=== PATIENT | male | born 1955 | race Caucasian/White ===

== ENCOUNTER 2023-08-20 08:24 | Outpatient (AMB) | payer MEDICARE, OTHER, SELFPAY ==
[2023-08-20 08:37] VITALS: BP 124/72; PULSE 84; RESP 16; O2SAT 96; BMI 34.9
--- NOTE | 2023-08-20 08:37 | A.OFFVIS_ITS ---
Intake Vital Signs 08/20/23 08:37 Height 5 ft 10 in Weight 243 lb 8 oz BMI 34.9 BP 124/72 Blood Pressure Location Rt brachial Position Sitting Respiration 16 Pulse 84 Pulse Source Pulse Oximeter Pulse Oximetry (%) 96 Oxygen Delivery Method Room Air Intake Visit Reasons: NPV-Cluster Headaches-LVM Intake Note: Pt presents to office for new pt evaluation for cluster headaches. He reports they start in the posterior head, throbbing, radiates to left frontal region. These occur daily. He states they are a 9/10 on pain scale. They range from 4 hour to 24 hours. He denies nausea or vomiting. He states he treats at [facility] with Acetominophen which only works depending on how much he takes and the severity of the headache. He has been gettin these headaches for about 2 years. Allergies Penicillins Allergy (Unknown, Verified 08/20/23 08:43) Unknown Medication List - Last Reconciled 08/20/23 by Mary Mendez, MILLY calcium acetate 667 mg PO TID carvedilol 3.125 mg PO BID cholecalciferol (vitamin D3) 25 mcg PO DAILY ibuprofen 200 mg PO Q6H PRN levothyroxine 200 mcg PO DAILY lorazepam 2 mg PO 3XW omeprazole 20 mg PO sertraline 50 mg PO DAILY ubrogepant (Ubrelvy) 50 - 100 mg (0.5 - 1 x 100 mg) PO ONCE PRN 30 days HPI HPI Comments History of Present Illness Details 67-yr-old male presents for new pt evalu ation of headache disorder. Pt reports that he started having headaches approx 2 yrs ago, without preceding infection, injury, travel. He does feel like he is being pulled in multiple directions. He states he has multiple health issues of his own and his has young onset Alzheimer's and his dtr has bipolar. Headache questionnaire: Previous work-up? None Typical headache characteristics: Prodrome symptoms? Unsure Aura? None Location, quality, characteristics? Always on the left side of the back of the head into the back of the neck- usually aching but sometimes throbbing. It feels like someone with a very large hand is pressing against his left face/eye. Pain intensity? Starts at a 1/10 and climbs up to 9/10 Associated symptoms? Photophobia, activity intolerance- wants to lay down in his recliner. Denies phonophobia, dizziness, allodynia. Focal weakness, Parethesias, Autonomic s/s? Usually but can be both eyes- watery eyes, runny nose. Denies facial droop, paresthesias. Postdrome? Unsure Triggers? Sleep affects headcahes- but he does not know clear relationship. Any positional, valsalva, exertional, sexual activity triggers? None Time of day? []No specific time- comes on anytime. Duration? From 4-24 hrs Frequency? In the last 2 weeks, 14 headaches. How does headache impact your life? Would like to lay down, but cannot always. Current acute medication use/interventions: Tylenol, Ibuprofen- not always effective. Previous acute medication use: None Current preventative medication use: None Previous preventative medication use: None Non-pharmacological interventions: Rest as able Other history of headache disorder? None History of musculoskeletal disorders or injury? No usual neck issues History of concussion/head injury? None History of mood disorder? Anxiety, depression. He has had anxiety when he started dialysis- would become restless after being in the chair for 3 hrs. History of sleep disorder? Has a CPAP for sleep apnea- has [facility]. Has difficulty sleeping w/ his machine so does not use often. He is scheduled for a f/u sleep study. History of respiratory disease? None History of CV disease? HTN and HLD- well-controlled on HD. On kidney transplant list History of coagulopathy? None History of endocrine or metabolic disease? Hypothyroidism and type I diabetes- since age 17. History of seizure? None History of GI disorder? Constiptaion, GERD. Family history of migraine or other headache disorder? None [facility] Medical History (Updated 08/20/23 @ 13:02 by MILLY Saba) Alcoholism in remission Hemodialysis status GERD (gastroesophageal reflux disease) Erectile dysfunction Atherosclerosis Hypothyroidism Depression Bilateral hip pain HLD (hyperlipidemia) HTN (hypertension) CTS (carpal tunnel syndrome) Diabetes mellitus type 1 Microalbuminuria Bilateral cataracts Bilateral retinopathy CKD (chronic kidney disease) Surgical History (Updated 08/20/23 @ 08:46 by Ruthy Ortega CMA) History of shoulder surgery History of toe surgery H/O right knee surgery H/O thyroidectomy History of carpal tunnel surgery History of surgical removal of pilonidal cyst Family History Mother No problems noted. Father No problems noted. Social History Alcohol intake: never Patient Tobacco Use Status: Former Tobacco user Review of Systems Const Details: See scanned ROS form Physical Exam Vital Signs: Last Vital Signs Pulse 84 08/20/23 08:37 Resp 16 08/20/23 08:37 BP 124/72 08/20/23 08:37 Pulse Ox 96 08/20/23 08:37 Oxygen Delivery Method Room Air 08/20/23 08:37 BMI result Body Mass Index 34.9 Const Orientation/consciousness: patient oriented x3 HEENT Other: Left occipital region diffuce mild palpable scalp tenderness- not id LISSET or DARRELL distribution Head: Yes normocephalic Resp Effort & Inspection: normal respiratory effort and able to speak in complete sentences Back/Spine/Pelvis Other: Bilateral posterior cervical tightness. Cervical ROM: limited, more so in extension Left Spurling: worsens left occipital-neck discomfort. Right Spurling: normal. Neuro General: patient oriented x3 Cranial nerves: Yes CN's II-XII intact bilaterally Cognition (Neuro): normal cognition Gait exam (Neuro): Normal gait present Motor exam (neuro): 5/5 motor strength present throughout Deep tendon reflexes (DTR's): Right triceps reflex intensity grade: 1+, Left triceps reflex intensity grade: 1+, Rt Biceps (C5, C6): 1+, Left biceps reflex intensity grade: 1+, Right brachioradialis reflex intensity grade: 1+, Left brachioradialis reflex intensity grade: 1+, Right patellar reflex intensity grade: 1+ and Left patellar reflex intensity grade: 1+ Coordination: [id number] test normal and Romberg test negative Pupils: Normal pupillary reactivity/response: bilateral Psych Appearance: grossly normal Mental Status: mental status grossly normal Speech and movement: Normal speech and movement present Affect: normal affect Attitude: cooperative Thought process: Normal thought process present Assessment & Plan Assessment & Plan (1) Left-sided headache: Comment: ? secondary HURST, ? TAC (however pt does not endorse restlessness/agitation and duration is longer than would be expected for a TAC), ? migraine, ? cervicogenic Code(s): R51.9 - Headache, unspecified (2) Left eye pain: Code(s): H57.12 - Ocular pain, left eye (3) Autonomic facial cephalgia: Comment: Left (sometimes less so on right) eye watering and left rhinorrhea during more severe left-sided headache Code(s): G90.8 - Other disorders of autonomic nervous system; R51.9 - Headache, unspecified (4) Cervicalgia: Code(s): M54.2 - Cervicalgia (5) Migraine without aura: Code(s): G43.009 - Migraine without aura, not intractable, without status migrainosus Plan Pt advised to undergo brain MRI w/wo to assess for secondary etiologies of side locked left sided headcahe w/ L > R autonomic s/s. Consider head MRA upon review. Pt advised to undergo c-spine XR 4 views w/ flexion/ext. Consider muscle relaxer, PT, MRI upon review. For acute migraine: Trial Ubrogepant (Ubrelvy) 100mg tab, 1/2 - 1 tab (50-100mg) at onset of headache, may repeat in 2 hours. Max of 2 tabs (200mg) per 24 hours. May adjunct with OTC Tylenol 650mg q 4 hours, Ibuprofen 600mg q 6 hours, or Naproxen 440mg q 12 hrs prn. Acute migraine/headache tx contraindications- Indomethacin d/t CKD on HD. Triptans d/t HTN, HLD, CAD. f/u upon review of above, and in-clinic in 3 months or sooner prn. Orders: Orders XR cervical spine w flex/ext Today M54.2 - Cervicalgia XR cervical spine w flex/ext Today M54.2 - Cervicalgia MR head/brain wo/w con Today G90.8 - Other disorders of autonomic nervous system, H57.12 - Ocular pain, left eye, R51.9 - Headache, unspecified Basic Metabolic Panel Today N18.9 - Chronic kidney disease, unspecified Medications: New ubrogepant (Ubrelvy) take at onset of migraine, may repeat in 2hrs (may take w/ Ibuprofen) 50 - 100 mg (0.5 - 1 x 100 mg) PO ONCE 30 days PRN 16 tabs 3RF migraine headache Coding Level of Care Code New Pt Level 4 (30144) Diagnoses Left-sided headache R51.9 Left eye pain H57.12 Autonomic facial cephalgia G90.8; R51.9 Cervicalgia M54.2 Migraine without aura G43.009
== END 2023-08-20 09:43 | disposition home or self-care (01) ==
PROVIDERS: Visit Provider Nurse Practitioner Family
DX: R51.9 Headache, unspecified (principal); H57.12 Ocular pain, left eye; G90.8 Other disorders of autonomic nervous system; M54.2 Cervicalgia; G43.009 Migraine without aura, not intractable, without status migrainosus
CPT/HCPCS: 99204

== ENCOUNTER → 2023-08-20 08:24 | Outpatient (BNVA) | payer MEDICARE, SELFPAY | PROVIDERS: Visit Provider Nurse Practitioner Family ==

== ENCOUNTER 2023-10-12 15:30 | Outpatient (REF) | payer MEDICARE, SELFPAY | END 2023-10-12 15:31 | disposition home or self-care (01) | LOC: HO.MRI 15:30 | PROVIDERS: PCP Internal Medicine; Visit Provider Nurse Practitioner Family | DX: Z13.89 Encounter for screening for other disorder (principal) ==

== ENCOUNTER 2024-02-10 14:36 | Outpatient (AMB) | payer MEDICARE, MEDICAID, SELFPAY ==
[2024-02-10 14:43] VITALS: BP 118/70; PULSE 86; O2SAT 99; BMI 33.4
--- NOTE | 2024-02-10 14:43 | MHC.OFFVIS ---
Intake Vital Signs 02/10/24 14:43 Height 5 ft 10 in Weight 233 lb 2 oz BMI 33.4 BP 118/70 Blood Pressure Location Rt brachial Position Sitting Pulse 86 Pulse Source Pulse Oximeter Pulse Oximetry (%) 99 Oxygen Delivery Method Room Air Intake Visit Reasons: 3month follow up Cluster Headaches-LVM Accompanied by: Self / Same As Patient Allergies Penicillins Allergy (Unknown, Verified 02/10/24 14:48) Unknown Medication List - Last Reconciled 02/10/24 by MILLY Saba alprazolam 0.25 mg orally 1 tab 30 minutes prior to MRI, may repeat x's 1; 1 day calcium acetate 667 mg PO TID carvedilol 3.125 mg PO BID cholecalciferol (vitamin D3) 25 mcg PO DAILY ibuprofen 200 mg PO Q6H PRN levothyroxine 200 mcg PO DAILY lorazepam 2 mg PO 3XW omeprazole 20 mg PO rimegepant (Nurtec ODT) 75 mg PO Q OTHER DAY PRN 30 days sertraline 50 mg PO DAILY HPI HPI Comments History of Present Illness Details 68-yr-old male presents for f/u visit. Pt denies any significant interval medical changes. Patient continues on hemodialysis. He is hopeful to be a candidate for a kidney transplant. He can often be quite fatigued, which she attributes to the dialysis. He continues to have a daily left-sided headache. Usually if he goes to bed w/ the headache it will resolve by the time he wakes up. The Nurtec helps a lot, sometimes within 30 minutes. Without treatment, the headache would last 12 hrs. Unfortunately she does not have enough tabs to take every day. Baseline headache characteristics: Starts at a 1/10 and climbs up to 9/10, Always on the left side of the back of the head into the back of the neck- usually aching but sometimes throbbing. It feels like someone with a very large hand is pressing against his left face/eye a/w Photophobia, activity intolerance- wants to lay down in his recliner. Denies phonophobia, dizziness, allodynia, usually left but can be both eyes- watery eyes, runny nose. Feels left facial weakness but denies facial droop, paresthesias. 12/14/23, Brain MRI w/wo: IMPRESSION: 1. No acute intracranial pathology. 2. Mild chronic small vessel ischemic disease. [facility] Medical History Alcoholism in remission Hemodialysis status GERD (gastroesophageal reflux disease) Erectile dysfunction Atherosclerosis Hypothyroidism Depression Bilateral hip pain HLD (hyperlipidemia) HTN (hypertension) CTS (carpal tunnel syndrome) Diabetes mellitus type 1 Microalbuminuria Bilateral cataracts Bilateral retinopathy CKD (chronic kidney disease) Surgical History History of shoulder surgery History of toe surgery H/O right knee surgery H/O thyroidectomy History of carpal tunnel surgery History of surgical removal of pilonidal cyst Family History Mother No problems noted. Father No problems noted. Social History Alcohol intake: never Patient Tobacco Use Status: Former Tobacco user Physical Exam Vital Signs: Last Vital Signs Pulse 86 02/10/24 14:43 BP 118/70 02/10/24 14:43 Pulse Ox 99 02/10/24 14:43 Oxygen Delivery Method Room Air 02/10/24 14:43 BMI result Body Mass Index 33.4 Const General: cooperative and no acute distress Orientation/consciousness: patient oriented x3 Resp Effort & Inspection: normal respiratory effort and able to speak in complete sentences Neuro General: patient oriented x3 Cranial nerves: Yes CN's II-XII intact bilaterally Cognition (Neuro): normal cognition Psych Appearance: grossly normal Mental Status: mental status grossly normal Speech and movement: Normal speech and movement present Affect: normal affect Attitude: cooperative Assessment & Plan Assessment & Plan (1) Autonomic facial cephalgia: Comment: Left (sometimes less so on right) eye watering and left rhinorrhea during more severe left-sided headache Code(s): G90.8 - Other disorders of autonomic nervous system; R51.9 - Headache, unspecified (2) Migraine without aura: Code(s): G43.009 - Migraine without aura, not intractable, without status migrainosus (3) Left eye pain: Code(s): H57.12 - Ocular pain, left eye (4) Left-sided headache: Comment: ? secondary HURST, ? TAC (however pt does not endorse restlessness/agitation and duration is longer than would be expected for a TAC), ? migraine, ? cervicogenic Code(s): R51.9 - Headache, unspecified Plan Reviewed brain MRI w/wo report and images with patient- Mild chronic small vessel ischemic disease. Advise patient to continue optimizing his cardiovascular risk factors, he is compliant with hemodialysis, BP is normotensive. C-spine XR 4 views w/ flexion/ext. For acute migraine: Ubrogepant (Ubrelvy) 100mg tab- was denied by insurance, thus was not tried. Continue Nurtec 75 mg ODT q.d. p.r.n.. Acute migraine/headache tx contraindications- Indomethacin d/t CKD on HD. Triptans d/t HTN, HLD, CAD. For migraine prevention medication: Start Aimovig 140 mg subcu q.month. Continue carvedilol- use for hypertension. Preventive migraine treatment contraindications: TCAs due to history of OR, topiramate due to end-stage renal disease. If above ineffective, consider brain MRA. ? f/u upon review of above, and in-clinic in 3 months or sooner prn. Samples given w/ instructions on how to use: Aimovig 140mg /ml- 1 140mg autoinjector given to pt. Lot # [id number], exp 12/29/24 Inject 1 injection sc monthly Medications: New erenumab-aooe (Aimovig Autoinjector) 140 mg subcut ONCE 30 days 1 mL 6RF Refilled rimegepant (Nurtec ODT) 75 mg PO Q OTHER DAY 30 days PRN 16 tabs 6RF migraine headache Coding Level of Care Code Est Pt Level 4 (55608) Diagnoses Autonomic facial cephalgia G90.8; R51.9 Migraine without aura G43.009 Left eye pain H57.12 Left-sided headache R51.9
== END 2024-02-10 15:44 | disposition home or self-care (01) ==
PROVIDERS: PCP Internal Medicine; Visit Provider Nurse Practitioner Family
DX: G90.8 Other disorders of autonomic nervous system (principal); R51.9 Headache, unspecified; G43.009 Migraine without aura, not intractable, without status migrainosus; H57.12 Ocular pain, left eye
CPT/HCPCS: 99214

== ENCOUNTER → 2024-02-10 14:36 | Outpatient (BNVA) | payer MEDICARE, SELFPAY | PROVIDERS: PCP Internal Medicine; Visit Provider Nurse Practitioner Family | DX: G43.009 Migraine without aura, not intractable, without status migrainosus (principal); G90.8 Other disorders of autonomic nervous system; R51.9 Headache, unspecified; H57.12 Ocular pain, left eye | CPT/HCPCS: 99212 ==

== ENCOUNTER 2024-08-10 09:13 | Outpatient (AMB) | payer MEDICARE, SELFPAY ==
--- NOTE | 2024-08-10 09:17 | MHC.OFFVIS ---
Vital Signs 08/10/24 09:18 Height 5 ft 10 in Weight 227 lb BMI 32.6 BP 132/70 Blood Pressure Location Rt brachial Position Sitting Pulse 77 Pulse Source Pulse Oximeter Pulse Oximetry (%) 98 Oxygen Delivery Method Room Air Intake Visit Reasons: follow up Cluster Headaches Intake Note: Patient presents for cluster headaches. patient still having headaches Allergies Penicillins Allergy (Unknown, Verified 08/10/24 09:20) Unknown HPI Comments Details: 68-yr-old male presents for f/u visit. Pt denies any significant interval medical changes. Patient continues on hemodialysis. He is hopeful to be a candidate for a kidney transplant. Since the last visit, pt started Aimovig, which was helpful, he stopped having daily migraine. Unfortunately, the [facility], and since the [facility] attacks have increased. He has had a migraine 4 days per week in the last month left-sided headache. Migraines are triggered by stress. He has stopped refilling the [employer] though it worked within 15 minutes, as the co-pay increased to $400 per month. He is using Tylenol- takes a few hours to take effect. Baseline headache characteristics: Starts at a 1/10 and climbs up to 9/10, Always on the left side of the back of the head into the back of the neck- usually aching but sometimes throbbing. It feels like someone with a very large hand is pressing against his left face/eye a/w Photophobia, activity intolerance- wants to lay down in his recliner. Denies phonophobia, dizziness, allodynia, usually left but can be both eyes- watery eyes, runny nose. Feels left facial weakness but denies facial droop, paresthesias. 12/14/23, Brain MRI w/wo: IMPRESSION: 1. No acute intracranial pathology. 2. Mild chronic small vessel ischemic disease. [facility] Medical History Alcoholism in remission Hemodialysis status GERD (gastroesophageal reflux disease) Erectile dysfunction Atherosclerosis Hypothyroidism Depression Bilateral hip pain HLD (hyperlipidemia) HTN (hypertension) CTS (carpal tunnel syndrome) Diabetes mellitus type 1 Microalbuminuria Bilateral cataracts Bilateral retinopathy CKD (chronic kidney disease) Surgical History History of shoulder surgery History of toe surgery H/O right knee surgery H/O thyroidectomy History of carpal tunnel surgery History of surgical removal of pilonidal cyst Family History Mother No problems noted. Father No problems noted. Social History Alcohol intake: never Patient Tobacco Use Status: Former Tobacco user Physical Exam Vital Signs: Last Vital Signs Pulse 77 08/10/24 09:18 BP 132/70 08/10/24 09:18 Pulse Ox 98 08/10/24 09:18 Oxygen Delivery Method Room Air 08/10/24 09:18 BMI result Body Mass Index 32.6 Const General: cooperative and no acute distress Orientation/consciousness: patient oriented x3 Resp Effort & Inspection: normal respiratory effort and able to speak in complete sentences Neuro General: patient oriented x3 Cranial nerves: Yes CN's II-XII intact bilaterally Cognition (Neuro): normal cognition Psych Appearance: grossly normal Mental Status: mental status grossly normal Speech and movement: Normal speech and movement present Affect: normal affect Attitude: cooperative Assessment & Plan Assessment & Plan (1) Migraine without aura: Code(s): G43.009 - Migraine without aura, not intractable, without status migrainosus Category: Medical (2) Autonomic facial cephalgia: Comment: Left (sometimes less so on right) eye watering and left rhinorrhea during more severe left-sided headache Code(s): G90.8 - Other disorders of autonomic nervous system; R51.9 - Headache, unspecified Category: Medical (3) Left-sided headache: Comment: ? secondary HURST, ? TAC (however pt does not endorse restlessness/agitation and duration is longer than would be expected for a TAC), ? migraine, ? cervicogenic Code(s): R51.9 - Headache, unspecified Category: Medical (4) Left eye pain: Code(s): H57.12 - Ocular pain, left eye Category: Medical Plan C-spine XR 4 views w/ flexion/ext- not done. For acute migraine: Trial Ubrogepant (Ubrelvy) 100mg tab q 2 hrs prn, Max 2 tabs per day. Hold Nurtec 75 mg ODT q.d. p.r.n.- pt cannot afford. Continue Tylenol prn- though not fully effective. Acute migraine/headache tx contraindications- Indomethacin d/t CKD on HD. Triptans and DHE d/t HTN, HLD, CAD. NSAIDs d/t ESRD. For migraine prevention medication: Resume Aimovig 140 mg subcu q.month- as pt has had > 30% reduction in monthly migraine days while on Aimovig. We will check pt's pharmacy to see why Aimovig is not being refilled. Continue carvedilol- use for hypertension. Preventive migraine treatment contraindications: TCAs due to history of PA, topiramate due to end-stage renal disease. Pt to follow-up in 6 months or sooner prn. Medications: New ubrogepant (Ubrelvy) take at onset of migraine, may repeat in 2hrs (may take w/ Tylenol) 50 - 100 mg (0.5 - 1 x 100 mg) PO ONCE 30 days PRN 16 tabs 3RF migraine headache Refilled erenumab-aooe (Aimovig Autoinjector) 140 mg subcut ONCE 30 days 1 mL 6RF G43.009 - Migraine without aura, not intractable, without status migrainosus Coding Level of Care Code Est Pt Level 4 (58910) Diagnoses Migraine without aura G43.009 Autonomic facial cephalgia G90.8; R51.9 Left-sided headache R51.9 Left eye pain H57.12
[2024-08-10 09:18] VITALS: BP 132/70; PULSE 77; O2SAT 98; BMI 32.6
== END 2024-08-10 10:21 | disposition home or self-care (01) ==
PROVIDERS: PCP Internal Medicine; Visit Provider Nurse Practitioner Family
DX: G43.009 Migraine without aura, not intractable, without status migrainosus (principal); G90.89 Other disorders of autonomic nervous system; R51.9 Headache, unspecified; H57.12 Ocular pain, left eye
CPT/HCPCS: 99214

== ENCOUNTER → 2024-08-10 09:13 | Outpatient (BNVA) | payer MEDICARE, SELFPAY | PROVIDERS: PCP Internal Medicine; Visit Provider Nurse Practitioner Family | DX: G43.009 Migraine without aura, not intractable, without status migrainosus (principal); G90.89 Other disorders of autonomic nervous system; H57.12 Ocular pain, left eye; Z99.2 Dependence on renal dialysis; Z79.899 Other long term (current) drug therapy | CPT/HCPCS: 99212 ==

== ENCOUNTER 2025-07-11 08:53 | Outpatient (AMB) | payer MEDICARE, MEDICAID, SELFPAY ==
--- OUTSIDE RECORDS SUMMARY | 2025-07-10 11:00 | XMS_ITS | Encounter Summary ---
Author Organization [facility] Address [address] [phone] Phone Care Team Providers Care Television And Radio Repairer Name Role Phone Mabel Ambrose MD Primary Care Pr ovider Encounter Details Date Type Department Care Team (Late st Contact Info) Description 07/10/2025 11:00 AM EDT Office Visit [facility]. [address] [phone] Gigi Newsome MD [address] [phone] Kidney transplant status (Primary Dx); Type 1 diabetes mellitus, not otherwise specified (HCC); Neutropenia, not otherwise specified (HCC) Social History Tobacco Use Types Packs/Day Years Used Date Smoking Tobacco: Never Sex and Gender Information Value Date Recorded Sex Assigned at Not on file Legal Sex Male 4:48 PM EST Gender Identity Not on file Sexual Orientation Not on file documented as of this encounter Last Filed Vital Signs Vital Sign Reading Time Taken Comments Blood Pressure 164/70 07/10/2025 11:13 AM EDT Pulse 66 07/10/2025 11:13 AM EDT Temperature - - Respiratory Rate - - Oxygen Saturation 97% 07/10/2025 11:13 AM EDT Inhaled Oxygen Concentration - - Weight 95.4 kg (210 lb 6.4 oz) 07/10/2025 11:13 AM EDT Height - - Body Mass Index 30.19 07/26/2019 12:00 PM EDT documented in this encounter Patient Instructions * Patient Instructions* Gigi Newsome MD - 07/10/2025 11:00 AM EDT Sodium and Your CKD Diet: How to Spice Up Your Cooking What is sodium? Sodium is a mineral found naturally in foods and is the major part of table salt. What are the effects of eating too much sodium? When your kidneys are not healthy, extra sodium and fluid build up in your body. This can cause swollen ankles, puffiness, a rise in blood pressure, shortness of breath, and/or fluid around your heart and lungs. See the following table for suggestions on how to reduce sodium in your diet. LIMIT THE [AMOUNT OF... FOOD TO LIMIT BECAUSE OF THEIR HIGH SODIUM CONTENT ACCEPTABLE SUBSTITUTES SALT & SALT SEASONINGS Table salt Seasoning salt Garlic salt Onion salt Celery salt Lemon pepper Lite salt Meat tenderizer Bouillon cubes Flavor enhancers Fresh garlic, fresh onion, garlic powder, onion powder, black [pepper, lemon juice, low-sodium/salt-free seasoning blends, vinegar SALTY FOODS Barbecue sauce Steak sauce Soy sauce Teriaky sauce Oyster sauce Salted Snacks such as Crackers Potato chips [place] chips Pretzels Tortilla chips Nuts Popcorn [place] seeds Homemade or low- sodium sauces and salad dressings; Vinegar, dry mustard, unsalted popcorn, pretzels, tortilla or corn chips Cured Foods Ham Salt pork Hines Sauerkraut Pickles, pickle relish Lox & Espitia Olives Fresh beef, veal, pork, poultry, fish, eggs [place] MEATS Hot Dogs Cold cuts, deli meats Pastrami Sausage Corned beef Spam Low-salt deli meats PROCESSED FOODS Buttermilk Cheese Canned: Soups Tomato products Vegetable juices Canned vegetables Convenience Foods such as: TV Dinners Canned raviolis [place] Macaroni & Cheese Spaghetti Frozen prepared foods Fast foods Natural cheese (1-2 oz Per week) Homemade or markel,1- sodium soups, canned food without added salt Homemade casseroles without added salt, made with fresh or raw vegetables, fresh meat, barbra, pasta, or unsalted canned vegetables Some salt or sodium is needed for body water balance. But when your kidneys lose the ability to control sodium and water balance, you may experience the following: thirst fluid gain high blood pressure discomfort during dialysis By using less sodium in your diet, you can control these problems. Hints to keep your sodium intake down Cook with herbs and spices instead of salt. (Refer to Spice Up Your Cooking section for further suggestions.) Read food labels and choose those foods low in sodium. Avoid salt substitutes and specialty low-sodium foods made with salt substitutes because they are high in potassium. When eating out, ask for meat or fish without salt. Ask for gravy or sauce on the side; these may contain large amounts of salt and should be used in small amounts . Limit use of canned, processed and frozen foods. Some information about reading labels Understanding the terms: Sodium Free - Only a trivial amount of sodium per serving. Very Low Sodium - 35 mg or less per serving. Low Sodium - 140 mg or less per serving. Reduced Sodium - Foods in which the level of sodium is reduced by 25%. Light or Lite in Sodium - Foods in which the sodium is reduced by at least 50% . Simple rule of thumb : If salt is listed in the first five ingredients, the item is probably too high in sodium to use. All food labels now have milligrams (mg) of sodium listed. Follow these steps when reading the sodiwn information on the label: 1. Know how much sodium you are allowed each day. Remember that there are 1000 milligrams (mg) in 1gram. For [id number], if your diet prescription is 2 grams of sodium , your limit is 2000 milligrams per day. Consider the sodium value or other food to be eaten during the day. 2. Look at the package label. Check the serving size. Nutrition values are expressed per kourtney g. How does this compare to your total daily allowance? If the sodium level is 500 mg or more per serving, the item is not a good choice. 3. Compare labels of similar products. Select the lowest sodium level for the same serving size. How to Spice Up Your Cooking Giving up salt does not mean giving up flavor. Learn to season your food with herbs and spices. Be creative and experiment for a new and exciting flavor. What kinds of spices and herbs should I use instead of salt to add flavor? Try the following spices with the foods listed. Allspice: Use with beef, fish, beets, cabbage, canots, peas, fruit. Basil: Use with beef, pork, most vegetables. [place] Winger: Use with beef, pork, most vegetables. Bo: Use with beef, pork, green beans, cauliflower, cabbage, beets, asparagus, and in dips and marinades. Cardamom: Use with fruit and in baked goods. Veras: Use with beef, chicken, pork, fish, green beans, carrots and in marinades. Dill: Use with beef, chicken, green beans, cabbage, carrots, peas and in dips. Nieves: Use with beef, chicken, pork, green beans, cauliflower and eggplant. Marjoram: Use with beef, chicken, pork, green beans, cauliflower and eggplant. Anuradha: Use with chicken, pork, cauliflower, peas and in marinades. Thyme: Use with beef, chicken, pork, fish, green beans, beets and carrots. Irineo: Use with chicken, pork, eggplant and in dressing. Tarragon: Use with fish, chicken, asparagus, beets, cabbage, cauliflower and in marinades. Tips for cooking with herbs and spices Purchase spices and herbs in small amounts . When they sit on the shelf for years they lose their flavor. Use no more than ?? teaspoon of dried spice (?? of fresh) per pound of meat. Add ground spices to food about 15 minutes before the end of the cooking period. Add whole spices to food at least one hour before the end of the cooking period. Combine herbs with oil or butter, set for 30 minutes to bring out their flavor, then brush on foodswhile they cook, or brush meat with oil and sprinkle herbs one hour before coolcing. Crush dried herbs before adding to foods. Can I use salt substitutes? Caution! If you are told to limit potassium in your diet, be very cautious about using salt substitutes because most of them contain some form of potassium. Check with your doctor or dietitian beforeusing and salt substitute. [place] and create your own seasoning containing those spices that you like. If you would like to become a volunteer and find out more about what's happening where you live, contact your local [facility] Affiliate. No NSAIDS - Do not take non-steroidal anti-inflammatory medications (NSAIDS) such as Ibuprofen (Advil, Motrin, etc), Naproxen (Aleve, etc), Celecoxib (Celebrex) or Ketoprofen. These common arthritis medications can cause permanent kidney damage or worsen your kidney damage. For mild occasional pain, Acetaminophen (Tylenol, etc) is safe for your kidneys. Blood pressure monitoring education: Monitor home blood pressure values after sitting for 5 minutes with back and arm support. Keep a log. Bring your log and blood pressure cuff to your next visit. documented in this encounter Progress Notes * Gigi Newsome MD - 07/10/2025 11:00 AM EDT Images from the original note were not included. Patient Name: Abram Osman, Male Date of : 1955, 69 y.o. Date: 07/10/25 [] New Patient [x] Established Patient [] New Hospital Follow Up [] Established Hospital Follow Up [] Telemed Visit [] H&P Referring MD: Walter Kumar PA-C PCP: Mabel Ambrose MD Reason For Visit: ESRD s/p DDTx, Kidney Xpalngt Management Abram Osman is a 69 y.o. male seen today in f/u re; DDTx 12/2024 for his Kidney Xplant management Main issue we have been struggling with is his Neutropenia with weekly vs biweekly CBC. We stopped the Valcyte 06/19/25 Xplant Hisotry ESRD d/t TiDM HD mwf via AVF onset 2018 DDTx 01/20/25 KDPI 75% CMV -/- EBV +/+ PRA 0 Protocol Bx 04/2025 neg for rejection IS: converted to Hrotencia 04/03/25 d/t Nueorpathy on Tacro Today Overall doing ok. 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 HENT: Negative for congestion, ear pain, hearing loss and sore throat. Eyes: Negative for pain and discharge. Respiratory: Negative for cough, shortness of breath and wheezing. Cardiovascular: Negative for chest pain, palpitations and leg swelling. Gastrointestinal: Negative for abdominal pain, blood in stool, constipation, diarrhea, nausea and vomiting. Genitourinary: Negative for dysuria, frequency, hematuria and urgency. Musculoskeletal: Negative for back pain, myalgias and neck pain. Skin: Negative for rash. Neurological: Negative for dizziness, tremors and headaches. Endo/Heme/Allergies: Negative for polydipsia. Does not bruise/bleed easily. Full 13 point review of systems unremarkable except as noted above. Past Medical History: Diagnosis Date Bilateral cataracts Depressive disorder Gastroesophageal reflux disease Hyperlipidemia Hypertension Stage 3 chronic kidney disease Type 1 diabetes mellitus (HCC) Past Surgical History: Procedure Laterality Date OTHER SURGICAL HISTORY shoulder repair TONSILLECTOMY TRANSPLANTATION RENAL 01/20/2025 Social History Tobacco Use Smoking status: Never Smokeless tobacco: Not on file Substance Use Topics Alcohol use: Not on file Comment: Alcoholic Drinks/day: 3 or more drinks per day Family History Problem Relation Age of Onset Hypertension Mother Diabetes Father Cancer Mother Hypertension Father Heart disease Father Cancer Father Diabetes Mother Current Outpatient Medications Medication Sig Dispense Refill atorvastatin (LIPITOR) 80 MG tablet Take 1 tablet by mouth 1 (one) time each day atovaquone (MEPRON) 750 MG/5ML suspension Take 1,500 mg by mouth 1 (one) time each day B Vwhqbgq-X-Rqsla Acid (Triphrocaps) 1 MG capsule Take 1 capsule by mouth once daily 90 capsule 3 Calcium Acetate, Phos Binder, 667 MG capsule TAKE 2 CAPSULES BY MOUTH THREE TIMES DAILY WITH MEALS 510 capsule 0 cinacalcet (SENSIPAR) 30 MG tablet Take 30 mg by mouth 1 (one) time each day Doxepin HCl 3 MG tablet Take 3 tabls daily as needed for insomnia ezetimibe (ZETIA) 10 MG tablet Take 10 mg by mouth 1 (one) time each day levothyroxine (SYNTHROID, LEVOTHROID) 200 MCG tablet Take 200 mcg by mouth 1 (one) time each day loperamide (IMODIUM) 2 MG capsule Take 2 mg by mouth if needed metoprolol succinate XL (TOPROL XL) 25 MG 24 hr tablet Take 25 mg by mouth 1 (one) time each day mycophenolate (MYFORTIC) 180 MG EC tablet Take 540 mg by mouth in the morning and 540 mg in the evening. nitroglycerin (NITROSTAT) 0.[address] 1 tablet under the tongue every 5 (five) minutes if needed omeprazole (PriLOSEC) [address] capsule Take 1 capsule by mouth once daily 90 capsule 0 predniSONE 5 MG tablet Take 5 mg by mouth 1 (one) time each day senna (SENOKOT) 8.6 MG tablet Take 1 tablet by mouth if needed for constipation Sodium Zirconium Cyclosilicate (Lokelma) 10 g pack Take 10 g by mouth tamsulosin (FLOMAX) 0.4 MG 24 hr capsule Take 0.4 mg by mouth 1 (one) time each day Vitamin D, Ergocalciferol, 50 MCG (2000 UT) capsule TAKE 1 CAPSULE BY MOUTH ONCE DAILY take with food furosemide (LASIX) 40 MG tablet TAKE 1 TABLET BY MOUTH IN THE MORNING AND 1 TABLET IN THE EVENING (Patient not taking: Reported on 07/10/2025) 180 tablet 0 midodrine (PROAMATINE) 2.5 MG tablet TAKE 3 TABLETS BY MOUTH ONCE DAILY ON DIALYSIS DAYS NEEDED SBP >120 (Patient not taking: Reported on 07/10/2025) 90 tablet 3 sertraline (ZOLOFT) 25 MG tablet Take 1 tablet by mouth once daily (Patient not taking: Reported on07/10/2025) 30 tablet 0 sertraline (ZOLOFT) 50 MG tablet Take 1 tablet by mouth once daily (Patient not taking: Reported on07/10/2025) 30 tablet 11 No current facility-administered medications for this visit. Allergies Allergen Reactions Penicillins Rash and Other (see comments) Unknown Objective: Vitals: 07/10/25 1113 BP: 164/70 Pulse: 66 SpO2: 97% Weight: 210 lb 6.4 oz (95.4 kg) 146/70 Vitals reviewed. Constitutional: He does not appear ill. HEENT: Right Ear: Hearing normal. Left Ear: Hearing normal. Nose: Nose normal. Mouth/Throat: Oropharynx is clear and moist. Eyes: Conjunctivae are normal. Pupils are equal, round, and reactive to light. No scleral icterus. Neck: No thyroid mass and no thyromegaly present. Cardiovascular: Normal rate and regular rhythm. Exam reveals no friction rub. No murmur heard.He exhibits no edema. Pulmonary/Chest: Effort normal and breath sounds normal. No respiratory distress. He has no wheezes. He has no rales. Abdominal: Soft. There is no abdominal tenderness. No hernia. Musculoskeletal: Normal range of motion. He exhibits no deformity. Skin: Skin is warm and dry. No rash noted. No erythema. Psychiatric: He has a normal mood and affect. His behavior is normal. Judgment normal. EST GFR Date Value Ref Range Status 07/26/2019 11 ML/MIN/1.73 M2 Final Comment: Creatinine based estimated glomerular filtration rate (eGFR) is calculated using the Chronic Kidney Disease Epidemiology Collaboration (CKD-EPI). The CKD-EPI creatinine equation has not been validated in children (<18 years), women or in some racial or ethnic subgroups other than Caucasians and Americans. Testing performed or reported by ~[facility], ~a Service of [facility], ~[address] [place] [id number]~ eGFR Non-Afr [place]an Date Value Ref Range Status 05/31/2025 48 Final Chemistry Lab Units 07/09/25 1002 07/03/25 1027 06/19/25 1500 05/31/25 0000 01/08/25 0300 01/05/25 0300 01/03/25 0300 12/08/24 0300 12/06/24 0300 11/10/24 0300 11/08/24 0300 10/04/24 0300 09/11/24 0300 09/06/24 0300 CREATININE mg/dL 1.71* 1.68* 1.61* 1.54* -- -- 6.83* -- 6.36* -- 6.04* 6.55* -- 6.53* BUN mg/dL 29* 32* 31* 30* 57* 54* 52* < > 49* < > 54* 41* -- 60* BUN / CREAT RATIO 17 19 19 -- -- -- -- -- -- -- -- -- -- -- EGFRNAFR -- -- -- 48 -- -- -- -- -- -- -- -- -- -- GLUCOSE mg/dL 284* 229* 118* 271* -- -- 227* -- 275* -- 164* 297* -- 248* POTASSIUM mmol/L 4.7 5.1 4.8 5.0 -- -- 5.2* -- 5.9* -- 4.8 4.9 < > 5.8* SODIUM mmol/L 138 138 139 140 -- -- 135* -- 134* -- 139 135* -- 137 CO2 mmol/L 18* 22 22 -- -- -- 24 -- 22 -- 24 24 -- 23 CHLORIDE mmol/L 104 101 102 106.0 -- -- 101 -- 103 -- 106 101 -- 104 ALBUMIN g/dL 4.0 4.1 4.2 -- -- -- 4.3 -- 4.0 -- 4.2 4.0 -- 4.1 HEMOGLOBIN A1C % -- -- -- -- -- -- -- -- -- -- 7.1* -- -- -- URIC ACID mg/dL -- -- -- -- -- -- -- -- -- -- 5.6 -- -- -- BILIRUBIN TOTAL mg/dL -- -- -- -- -- -- 0.4 -- 0.3 -- 0.3 0.4 -- 0.3 AST U/L -- -- -- -- -- -- 18 -- 12 -- 12 11 -- 17 ALT U/L -- -- -- -- -- -- 24 -- 19 -- 17 <7* -- 14 < > = values in this interval not displayed. Bone Mineral Lab Units 07/09/25 1002 07/03/25 1027 06/19/25 1500 05/31/25 0000 01/12/25 0300 01/03/25 0300 12/06/24 0300 11/08/24 0300 10/04/24 0300 09/06/24 030 CALCIUM mg/dL 9.1 9.3 9.7 -- -- 9.3 9.3 9.3 9.3 9.6 9.6 9.1 9.1 9.6 9.6 PHOSPHORUS mg/dL 3.3 3.7 3.1 3.5 4.8 6.0* 4.0 4.7 3.6 4.4 ALK PHOS U/L -- -- -- -- -- 103 143* 106 123* 118* MAGNESIUM mg/dL -- -- -- -- -- 2.1 2.0 2.0 2.4 2.2 PTH pg/mL -- -- -- -- -- -- -- 494 -- -- VITAMIN D ng/mL -- -- -- -- -- -- -- 13 -- -- CBC Lab Units 07/09/25 1002 07/03/25 1027 06/26/25 1245 06/19/25 1500 05/31/25 0000 01/17/25 0300 01/10/25 0300 01/03/25 0300 12/20/24 0300 12/06/24 030 WBC AUTO x10E3/uL 1.6* 2.0* 1.6* 1.6* 2.6* -- -- 6.9 -- 5.7 RBC AUTO x10E6/uL 4.01* 4.06* 4.24 3.98* -- -- -- 3.80* -- 3.57* MCV fL 91 91 92 90 90.7 -- -- 91.3 -- 90.2 HEMATOCRIT % 36.5* 37.1* 39.0 35.9* 36.0* 33.4* -- 34.7* < > 32.2* HEMOGLOBIN g/dL 11.5* 11.6* 11.9* 11.2* 11.0* 10.7* < > 11.1* < > 10.4* PLATELETS AUTO x10E3/uL 195 223 217 198 217 -- -- 203 -- 251 < > = values in this interval not displayed. Labs Lab Units 12/11/24 0300 11/08/24 0300 CHOLESTEROL TOTAL mg/dL 131 149 HDL mg/dL 47* 47* CHOL/HDL RATIO 2.8 3.2 TRIGLYCERIDES mg/dL 120 86 Urine Lab Units 08/19/25 1500 ALB MG/G CREAT UR mg/g creat 105* Urine Lab Units 06/19/25 1500 PH U 6.0 COLOR U Yellow GLUCOSE UR Trace* WBC UR HPF /hpf None seen RBC UR HPF /hpf None seen PROTEIN UR mg/dL 36.0 UROBILINOGEN UA mg/dL 0.2 Iron Studies Lab Units 01/03/25 0300 12/06/24 0300 11/08/24 0300 10/04/24 0300 09/06/24 0300 FERRITIN ng/mL 1,204* 1,246* 1,401* 1,095* 1,638* TIBC ug/dL 207* 197* 193* 193* 183* IRON SATURATION % 38 33 24 25 40 PLAN: Assessment & Plan 1. Kidney transplant status 2. Type 1 diabetes mellitus, not otherwise specified (HCC) 3. Neutropenia, not otherwise specified (HCC) 69 Y/O M ESRD T1DM S/P DDTX CKD 3 MAINTAINED ON HORTENCIA/MMF Graft Func Scr range 1.5 to 1.7 DSA neg and Prospera < 0.8 ( 04/2025) Protocol Bx 04/2025--no rejection 2. IS: concverted Tacro to Hortencia ( 04/2025) d/t neurpathy; MMF and Pred 5 3. ID Prophylaxis: Mepron/Valcyte until 07/2025 Valcyte d/c 06/23/25 d/t Neutropenia 4. ID: BK blood PCR and CMV PCR neg 07/2025 EBV risk +/+ CMV -/- risk intermediate 5. Heme: reepat wbc 1.6 with ANC 1.1 on 07/09/25 --suspect d/t MMF as he is now off Valvyst for 2 weeks may need G-CSF if ANC < 1.0 6. HTN/vol BP elevated today in office and if cont elevated then will incr BP meds 7. Metabolic: track PTH/vit/Ca/Phos 8. T1DM: insullin pump PLAN: repeat WBC and ANC toda2x/w k until ANC > 1.5 , ,stress improtance of dc Valcyte, track renal func, avoid Ntoxins Track BP He knows to conatct me if he gets fever Orders Placed This Encounter CBC and differential Return in about 2 weeks (around 07/24/2025). Gigi Newsome MD documented in this encounter Plan of Treatment Upcoming Encounters Date Type Department Care Team (Late st Contact Info) Description 08/01/2025 2:00 PM EDT Office Visit [facility] [address] [phone] Gigi Newsome MD [address] [phone] Scheduled Orders Name Type Priority Associated Diagnoses Orde r Schedule CBC and differential Lab Routine Kidney transplant status Type 1 diabetes mellitus, not otherwise specified (HCC) Neutropenia, not otherwise specified (HCC) Expected: 07/10/2025, Expires: 08/09/2026 documented as of this encounter Visit Diagnoses Diagnosis Kidney transplant status- Primary Type 1 diabetes mellitus, not otherwise specified (HCC) Neutropenia, not otherwise specified (HCC) documented in this encounter Care Teams Television And Radio Repairer Relationship Specialty Start Date End Date Mabel Ambrose MD [address] [place] [id number] PCP - General 11/11/20 documented as of this encounter
[2025-07-11 09:06] VITALS: BP 140/70; PULSE 68; O2SAT 98; BMI 31.6
--- NOTE | 2025-07-11 09:06 | A.OFFVIS_ITS ---
Vital Signs 07/11/25 09:06 Height 5 ft 10 in Weight 220 lb BMI 31.6 BP 140/70 H Blood Pressure Location Rt brachial Position Sitting Pulse 68 Pulse Source Pulse Oximeter Pulse Oximetry (%) 98 Oxygen Delivery Method Room Air Intake Visit Reasons: med questions/follow up Intake Note: Patient presents for cluster headaches. patient still having headaches Tractor Sweeper Operator Required: No Accompanied by: Self / Same As Patient Allergies Penicillins Allergy (Unknown, Verified 07/11/25 09:14) Unknown Medication List - Last Reconciled 07/11/25 by MILLY Saba alprazolam 0.25 mg orally 1 tab 30 minutes prior to MRI, march repeat x's 1; 1 day calcium acetate 667 mg PO TID carvedilol 3.125 mg PO BID cholecalciferol (vitamin D3) 25 mcg PO DAILY galcanezumab-gnlm (Emgality) 300 mg (3 mL) subcut QMONTH 30 days ibuprofen 200 mg PO Q6H PRN levothyroxine 200 mcg PO DAILY lorazepam 2 mg PO 3XW omeprazole 20 mg PO rimegepant (Nurtec ODT) 75 mg PO Q OTHER DAY PRN 30 days sertraline 50 mg PO DAILY HPI Comments Details: 68-yr-old male presents for f/u visit. Pt denies any significant interval medical changes. Since last visit, pt underwent kidney transplant, which he states has been beneficial, however he is prone to variable potassium levels and WBCs. [facility] is being [facility] closely [facility]. He reports he is been having an almost daily typical migraine attack. Also having left upper parietal region throbbing pressing pain comes on strong for 3 minutes but lasts at least 20-60 minutes a/w restlessness, odd left facial sensations, which is most bothersome. He is compliant with Aimovig, but feels it is no longer helping. He is taking Tylenol unsure of dose, probably 500mg, up to 9 tabs a day. Baseline headache characteristics: Starts at a 1/10 and climbs up to 9/10, Always on the left side of the back of the head into the back of the neck- usually aching but sometimes throbbing. It feels like someone with a very large hand is pressing against his left face/eye a/w Photophobia, activity intolerance- wants to lay down in his recliner. Denies phonophobia, dizziness, allodynia, usually left but can be both eyes- watery eyes, runny nose. Feels left facial weakness but denies facial droop, paresthesias. 12/14/23, Brain MRI w/wo: IMPRESSION: 1. No acute intracranial pathology. 2. Mild chronic small vessel ischemic disease. FORMERLY [facility], 1928–1983 Medical History (Updated 07/11/25 @ 10:04 by MILLY Saba) Alcoholism in remission Hemodialysis status GERD (gastroesophageal reflux disease) Erectile dysfunction Atherosclerosis Hypothyroidism Depression Bilateral hip pain HLD (hyperlipidemia) HTN (hypertension) CTS (carpal tunnel syndrome) Diabetes mellitus type 1 Microalbuminuria Bilateral cataracts Bilateral retinopathy CKD (chronic kidney disease) Surgical History (Updated 07/11/25 @ 09:14 by Fanny Askew CMA) Hx of kidney transplant History of shoulder surgery History of toe surgery H/O right knee surgery H/O thyroidectomy History of carpal tunnel surgery History of surgical removal of pilonidal cyst Family History Mother No problems noted. Father No problems noted. Social History Alcohol intake: never Patient Tobacco Use Status: Former Tobacco user Physical Exam Vital Signs: Last Vital Signs Pulse 68 07/11/25 09:06 BP 140/70 H 07/11/25 09:06 Pulse Ox 98 07/11/25 09:06 Oxygen Delivery Method Room Air 07/11/25 09:06 BMI result Body Mass Index 31.6 Const General: cooperative and no acute distress Orientation/consciousness: patient oriented x3 Resp Effort & Inspection: normal respiratory effort and able to speak in complete sentences Neuro General: patient oriented x3 Cranial nerves: Yes CN's II-XII intact bilaterally Cognition (Neuro): normal cognition Gait exam (Neuro): Normal gait present Psych Appearance: grossly normal Mental Status: mental status grossly normal Speech and movement: Normal speech and movement present Affect: normal affect Attitude: cooperative Assessment & Plan Assessment & Plan (1) Cluster headache: Code(s): G44.009 - Cluster headache syndrome, unspecified, not intractable Category: Medical Qualifiers: Headache chronicity pattern: unspecified pattern Intractability: not intractable Qualified Code(s): G44.009 - Cluster headache syndrome, unspecified, not intractable (2) Left-sided headache: Comment: ? TAC now a/w restlessness Code(s): R51.9 - Headache, unspecified Category: Medical (3) Left eye pain: Code(s): H57.12 - Ocular pain, left eye Category: Medical (4) Chronic migraine without aura, intractable, with status migrainosus: Code(s): G43.711 - Chronic migraine without aura, intractable, with status migrainosus Category: Medical Plan For cluster headache, left sided: Start Emgality 300mg monthly during cluster cycle attack. Pt declined prn O2 and intrnasal lisocaine gel orders at this time- will reconsider in future. States O2 reminds him of end-of-life care. For acute migraine: Resume Nurtec 75 mg ODT q.d. p.r.n.- was previosuly helpful. Continue Tylenol prn- less than 15 days per month. Acute migraine/headache tx contraindications- Indomethacin d/t CKD on HD. Triptans and DHE d/t HTN, HLD, CAD. NSAIDs d/t ESRD. For migraine prevention medication: Discontinue Aimovig 140 mg subcu q.month- no longer effective and pt will start Emgality for cluster headache prevention. Continue carvedilol- use for hypertension. Preventive migraine treatment contraindications: TCAs due to history of GA, topiramate due to s/p kidney transplant Pt to follow-up in 6 months or sooner prn. Medications: New galcanezumab-gnlm (Emgality) administer as three 100 mg injections at separate sites 300 mg (3 mL) subcut QMONTH 3 mL 6RF 30 days G44.009 - Cluster headache syndrome, unspecified, not intractable Discontinued erenumab-aooe (Aimovig Autoinjector) Discontinued Reason: Doctor's Order 140 mg subcut ONCE 30 days 1 mL 6RF G4 3.009 - Migraine without aura, not intractable, without status migrainosus ubrogepant (Ubrelvy) take at onset of migraine, may repeat in 2hrs (may take w/ Tylenol) Discontinued Reason: Doctor's Order 50 - 100 mg (0.5 - 1 x 100 mg) PO ONCE 30 days PRN 16 tabs 3RF migraine headache Coding Level of Care Code Est Pt Level 4 (11368) Diagnoses Cluster headache, not intractable, unspecified chronicity pattern G44.009 Headache chronicity pattern: unspecified pattern Intractability: not intractable Left-sided headache R51.9 Left eye pain H57.12 Chronic migraine without aura, intractable, with status migrainosus G43.711
--- OUTSIDE RECORDS SUMMARY | 2025-07-11 10:25 | XMS_ITS | Encounter Summary ---
Author Organization [facility] Address [address] [place] [address] Phone Care Team Providers Care Harness Puller Name Role Phone Mabel Ambrose MD Primary Care Pr ovider Reason for Visit * Reason Comments Med Refill Encounter Details Date Type Department Care Team (Late st Contact Info) Description 12/30/2021 Refill [facility] [address] [place] [address] Timothy Oshea MD [address] [phone] Social History Tobacco Use Types Packs/Day Years Used Date Smoking Tobacco: Never Sex and Gender Information Value Date Recorded Sex Assigned at Not on file Legal Sex Male 4:48 PM EST Gender Identity Not on file Sexual Orientation Not on file documented as of this encounter Plan of Treatment Upcoming Encounters Date Type Department Care Team (Late st Contact Info) Description 08/01/2025 2:00 PM EDT [facility] [address] [phone] Gigi Newsome MD [address] [phone] documented as of this encounter Visit Diagnoses Not on filedocumented in this encounter Care Teams Harness Puller Relationship Specialty Start Date End Date Mabel Ambrose MD [address] [place] [address] PCP - General 11/11/20 documented as of this encounter
--- OUTSIDE RECORDS SUMMARY | 2025-07-11 10:25 | XMS_ITS | Clinical Summary ---
Author Organization [facility] Address [address] [place] [address] Phone Care Team Providers Care Coal Miner Name Role Phone Mabel Ambrose MD Primary Care Pr ovider Allergies No known active allergies Medications levothyroxine (SYNTHROID, LEVOTHROID) 112 MCG tablet Take 112 mcg by mouth every morning. Active LORazepam (ATIVAN) 1 MG tablet Take 1 mg by mouth every 6 (six) hours as needed for anxiety. Active atorvastatin (LIPITOR) 80 MG tablet Take 80 mg by mouth daily. Active insulin aspart U-100 (NOVOLOG) 100 unit/mL injection vial Inject under the skin 3 (three) times a day before meals. Via insulin pump Active carvedilol (COREG) 3.125 MG tablet Take 3.125 mg by mouth 2 (two) times a day with meals. Active cholecalciferol (VITAMIN D3) 25 MCG (1,000 unit) tablet Take 1,000 Units by mouth daily. Active midodrine (PROAMATINE) 2.5 MG tablet Take 2.5 mg by mouth 3 (three) times a week. On dialysis days only Active turmeric root extract 500 mg Cap Take 1 capsule by mouth daily. Active calcium acetate,phospha t bind, (PHOSLO) 667 mg (169 mg elemental) capsule Take 1,334 mg by mouth 3 (three) times a day with meals. Active sertraline (ZOLOFT) 25 MG tablet Take 25 mg by mouth daily. Active ibuprofen (ADVIL,MOTRIN) 200 MG tablet Take 200 mg by mouth every 6 (six) hours as needed for pain (specific location in comments). Active Social History Tobacco Use Types Packs/Day Years Used Date Smoking Tobacco: Former Cigarettes Cigars Smokeless Tobacco: Never Education Answer Date Recorded Are you interested in more education? Not on dariel e 02/25/2023 Are you concerned about learning? Not on file 02/25/2023 No 02/25/2023 No 02/25/2023 Digital Access Answer Date Recorded No 03/28/2023 No 03/28/2023 Reliable internet access at home? Not on file 03/28/2023 Device with a working camera? Not on file Sex and Gender Information Value Date Recorded Sex Assigned at Male 04/13/2022 10:06 AM EDT Legal Sex Male 10:03 AM EDT Gender Identity Male 04/13/2022 10:06 AM EDT Sexual Orientation Straight 04/13/2022 10 :06 AM EDT Last Filed Vital Signs Vital Sign Reading Time Taken Comments Blood Pressure 122/75 05/28/2022 11:04 AM EDT Pulse 78 05/28/2022 11:04 AM EDT Temperature 35.7 C (96.3 F) 05/28/2022 11:04 AM EDT Respiratory Rate - - Oxygen Saturation 99% 05/28/2022 11: 04 AM EDT Inhaled Oxygen Concentration - - Weight 108.1 kg (238 lb 5.1 oz) 022 12:21 PM EDT Height 174 cm (5' 8.5 ) 05/28/2022 12:2 1 PM EDT Body Mass Index 35.7 05/28/2022 12:21 PM EDT Plan of Treatment Health Maintenance Due Date Last Done Comments LIPID PANEL 1954 TSH LEVEL 1954 DEPRESSION SCREENING 1966 SMOKING Hx and SMOKELESS TOBACCO SCREENING 1967 COLOGUARD 1999 COLONOSCOPY 1999 COLORECTAL CANCER SCREENING 1999 FIT TEST 1999 FOBT 1999 SIGMOIDOSCOPY 1999 VIRTUAL COLONOSCOPY 1999 ZOSTER VACCINES (1 of 2) 2004 Adult Td,Tdap Booster 07/23/2019 07/23/2009 PNEUMOCOCCAL VACCINES (50+ years) (2 of 2 - PPSV23) 08/29/2019 08/29/2018 ABDOMINAL AORTIC ANEURYSM (AAA) SCREENING 2019 INFLUENZA VACCINE (#1) 2025 0, 08/29/2018, 07/24/2017, Additional history exists COVID-19 VACCINE ( - season) 2025 04/21/2022, 10/08/2021, 01/24/2021, Additional history exists RSV VACCINE (1 - 1-dose 75+ series) 2029 HEPATITIS C SCREENING Completed 05/28/2022, 020 HEPATITIS A VACCINES Aged Out No long er eligible based on patient's age to complete this topic HIB VACCINES Aged Out No longer eligi ble based on patient's age to complete this topic MENINGOCOCCAL VACCINES (ACWY) Aged Out No longer eligible based on patient's age to complete this topic MENINGOCOCCAL VACCINES (B) Aged Out N o longer eligible based on patient's age to complete this topic Medical Devices Not on file Procedures Procedure Name Priority Date/Time Associated Diagnosis Comments HEPATITIS C ANTIBODY, QUALITATIVE Routine 05/28/2022 11:15 AM EDT Need for hepatitis C screening test Pre-transplant evaluation for end stage renal disease from Last 3 Months or Most Recently Relevant to Health Maintenance Results * Hepatitis C antibody, qualitative (05/28/2022 11:15 AM EDT) HCV ANTIBODY Negative Negative [facility] Comment:Antibodies to HCV no t detected. Does not exclude the possibility of exposure to HCV. 05/28/2022 11:1 5 AM EDT 05/28/2022 2:54 PM EDT us Carlitos Mccabe MD LAB BLOOD ORDERABLES Final Resul t [facility] [address] [place] [address] from Last 3 Months or Most Recently Relevant to Health Maintenance Insurance [employer] OUT OF STATE O MEDICARE PART A & B BL[employer] [place] OUT OF STATE O MEDICARE PART A & B [facility] MEDICARE PART A & B [facility] & B [facility] & B [facility] MEDICARE PART A & B [facility] MEDIC[facility] PART A & B [facility] B [place] OUT OF STATE HMO MEDICARE PART A & B MEDICARE PART A & B [employer] STATE HMO Care Teams Coal Miner Relationship Specialty Start Date End Date Mabel Ambrose MD [address] [place] [phone] PCP - General Internal Medicine 04/13/22 Additional Source Comments The information contained in this document represents components of the legal health record. It is not the complete legal health record.[facility]
--- OUTSIDE RECORDS SUMMARY | 2025-07-11 10:25 | XMS_ITS | Encounter Summary ---
Author Organization [facility] Address [address] [place] [address] Phone Care Team Providers Care Log Truck Driver Name Role Phone Mabel Ambrose MD Primary Care Pr ovider Reason for Visit * Reason Comments Med Refill Encounter Details Date Type Department Care Team (Late st Contact Info) Description 12/23/2021 Refill [facility] [address] [place] [address] Timothy Oshea MD [address] [phone] Social History Tobacco Use Types Packs/Day Years [...] Office Visit [facility] [address] [phone] Gigi Newsome MD [address] [phone] documented as of this encounter Visit Diagnoses Not on filedocumented in this encounter Care Teams Log Truck Driver Relationship Specialty Start Date End Date Mabel Ambrose MD [address] [place] [address] PCP - General 11/11/20 documented as of this encounter
--- OUTSIDE RECORDS SUMMARY | 2025-07-11 10:26 | XMS_ITS | Encounter Summary ---
Author Organization [facility] Address [address] [id number] Care Team Providers Care Rockboard Lather Name Role Phone Radha Tillman APRN Unavailable [phone] Aston Woods MD Unavailable [phone] Mabel Ambrose MD Primary Care Pr ovider Katey Nevarez PsyD Unavailable [phone] Jenny Rodríguez PhD Unavailable [phone] Encounter Details Date Type Department Care Team (Late st Contact Info) Description 03/06/2021 Scanned Document [facility] [address] [facility] [address] [place] [address] Provider, MD Keli [address] [place] [address] Social History Tobacco Use Types Packs/Day Years Used Date Smoking Tobacco: Never Assessed Sex and Gender Information Value Date Recorded Sex Assigned at Not on file Legal Sex Male 3:44 PM EST Gender Identity Not on file Sexual Orientation Not on file COVID-19 Exposure Response Date Recorded In the last month, have you been in contact with someone who was confirmed or suspected to have Coronavirus / COVID-19? Unable to assess 02/18/2021 10:29 AM EDT documented as of this encounter Plan of Treatment Not on file documented as of this encounter Visit Diagnoses Not on filedocumented in this encounter Care Teams Rockboard Lather Relationship Specialty Start Date End Date Mabel Ambrose MD [address] [place] [phone] PCP - General Internal Medicine 08/28/20 Radha Tillman APRN [address] [place] [address] Nurse Practitioner Surgery, Transplant 11/28/19 Aston Woods MD [address] [place] [address] Physician Nephrology 11/28/19 Katey Nevarez PsyD [address] [place] [address] Clinical Psychologist Psychology 02/18/21 Jenny Rodríguez, PhD [address] [place] [phone] Clinical Psychologist Psychology 04/03/21 documented as of this encounter
--- OUTSIDE RECORDS SUMMARY | 2025-07-11 10:26 | XMS_ITS | Clinical Summary ---
Author Organization [facility] Address [address] [place] [address] Care Team Providers Care Director Of Community Education Name Role Phone Radha Tillman APRN Unavailable Aston Woods MD Unavailable [phone] Mabel Ambrose MD Primary Care Pr ovider Katey Nevarez PsyD Unavailable [phone] Jenny Rodríguez PhD Unavailable [phone] Allergies Active Allergy Reactions Criticality Noted Date Comments Penicillins Rash/Dermatitis Low 11/28/2019 Medications * This document contains information received from the source organization and may not represent a complete record from that organization. atorvastatin (LIPITOR) 80 MG tablet Take 80 mg by mouth daily. 9 Active carvedilol (COREG) 12.5 MG tablet Take 12.5 mg by mouth 2 (two) times a day with meals. 9 Active calcium acetate (PHOSLO) 667 MG capsule TAKE 1 CAPSULE BY MOUTH THREE TIMES DAILY WITH MEALS 9 Active escitalopram (LEXAPRO) 10 MG tablet Take 10 mg by mouth daily. 9 Active ONETOUCH VERIO strip USE 1 STRIP TO CHECK GLUCOSE 4 TIMES DAILY 9 Active NOVOLOG 100 UNIT/ML injection INJECT 88 TO 100 UNITS SUBCUTANEOUSLY ONCE DAILY PER INSULIN PUMP 9 Active levothyroxine (SYNTHROID, LEVOTHROID) 112 MCG tablet Take 224 mcg by mouth daily. 9 Active LORazepam (ATIVAN) 0.5 MG tablet Take 0.5 mg by mouth daily as needed. 0 Active midodrine (ProAmatine) 2.5 MG tablet 7.5 mg once. As needed during dialysis treatments only. 0 Active aspirin enteric coated (ECOTRIN LOW STRENGTH) 81 MG EC tablet Take 81 mg by mouth daily. Active Active Problems Problem Noted Date Diagnosed Date Moderate episode of recurrent major depressive d isorder 02/20/2021 Alcohol use disorder, mild, abuse 02/20/2021 ESRD (end stage renal disease) 02/20/2021 Social History Tobacco Use Types Packs/Day Years Used Date Smoking Tobacco: Never Assessed PHQ-2 Answer Date Recorded PHQ-2 Total Score 0 08/15/2021 Sex and Gender Information Value Date Recorded Sex Assigned at Not on file Legal Sex Male 3:44 PM EST Gender Identity Not on file Sexual Orientation Not on file Last Filed Vital Signs Vital Sign Reading Time Taken Comments Blood Pressure 120/70 02/06/2021 12:47 PM EDT Pulse 84 02/06/2021 12:47 PM EDT Temperature 37.2 C (99 F) 02/06/2021 12:47 PM EDT Respiratory Rate - - Oxygen Saturation 98% 02/06/2021 12:47 PM EDT Inhaled Oxygen Concentration - - Weight 106 kg (233 lb 11 oz) 02/07/2021 7:44 AM EDT Height 177.8 cm (5' 10 ) 02/07/2021 7:44 AM EDT Body Mass Index 33.53 02/07/2021 7:44 AM EDT Plan of Treatment Health Maintenance Due Date Last Done Comments Advance Care Planning 1955 DTaP/Tdap/Td Vaccines (1 - Tdap) 1973 Pneumococcal Vaccines 50+ (1 of 2 - PCV) 1973 Hepatitis B Vaccines (1 of 3 - Risk Dialysis 4-dose series) 1974 Zoster (Shingles) Vaccine (1 of 2) 2004 RSV Vaccine 60 years and old er and Patients (1 - Risk 60-74 years 1-dose series) 2014 Influenza Vaccine 06/01/2025 07/24/2017 COVID-19 Vaccine ( - season) 2025 Colonoscopy 05/30/2030 05/30/2020 Hepatitis C Virus Screening Completed 12/05/2019 Hemoglobin A1C Discontinued 05/28/2022, 12/05/2019 Procedures Procedure Name Priority Date/Time Associated Diagnosis Comments HX GASTROENTEROLOGY COLONOSCOPY-SCAN Routine 05/30/2020 HEMOGLOBIN A1C Routine 12/05/2019 2:22 PM EST Awaiting transplantation of kidney Essential hypertension End stage renal disease (HCC) Type 1 diabetes mellitus with chronic kidney disease on chronic dialysis (HCC) HEPATITIS C VIRUS (HCV) ANTIBODY Routine 12/05/2019 2:22 PM EST Awaiting transplantation of kidney Essential hypertension End stage renal disease (HCC) Type 1 diabetes mellitus with chronic kidney disease on chronic dialysis (HCC) from Last 3 Months or Most Recently Relevant to Health Maintenance Results * HX GASTROENTEROLOGY COLONOSCOPY-SCAN (05/30/2020) External Provider MD [facility]AK[facility]B PROCEDURES Final Res ult * Hepatitis C antibody (12/05/2019 2:22 PM EST) Hepatitis C Antibody NON-REACT RITCHIE NON-REACT RITCHIE [facility] Hepatitis C Antibody (s/co) 0.01 <1.00 [facility] Comment: HCV antibody was non-reactive. There is no laboratory evidence of HCV infection. In most cases, no further action is required. However, if recent HCV exposure is suspected, a test for HCV RNA (test code 76177) is suggested. For additional information please refer to http://education.[employer]/faq/EKI73f9 (This link is being provided for informational/ educational purposes only.) Blood specimen (specimen) Blood specimen / Unknown 12/05/2019 2:22 PM EST 12/05/2019 2:23 PM EST Narrative Resulting Agency Comment Performing Organization Information: Site ID: [id number] Name: [facility] Address: [address] [place] [address], [place] [address] Director: Mary Ellen Tracey MD Radha Tillman APRN LAB BLOOD ORDERABLES Final R esult Performing Organization Address [facility]/ZIP Co de Phone Number [id number] [address], [place] [address] * (ABNORMAL) Hemoglobin A1c (12/05/2019 2:22 PM EST) Hemoglobin A1C 9.1(H) <5.7 % of total Hgb [facility] Comment: For someone without known diabetes, a hemoglobin A1c value of 6.5% or greater indicates that they may have diabetes and this should be confirmed with a follow-up test. For someone with known diabetes, a value <7% indicates that their diabetes is well controlled and a value greater than or equal to 7% indicates suboptimal control. A1c targets should be individualized based on duration of diabetes, age, comorbid conditions, and other considerations. Currently, no consensus exists regarding use of hemoglobin A1c for diagnosis of diabetes for children. Blood specimen (specimen) Blood specimen / Unknown 12/05/2019 2:22 PM EST 12/05/2019 2:23 PM EST Narrative Resulting Agency Comment Performing Organization Information: Site ID: [id number] Name: [facility] Address: [address] [place] [address], [facility] [place] [address] Director: Mary Ellen Tracey MD Radha Tillman APRN LAB BLOOD ORDERABLES Final R esult Performing Organization Address [facility] Co de Phone Number Consulted [id number] [address], [place] [address] from Last 3 Months or Most Recently Relevant to Health Maintenance Insurance MEDICARE PART A & B MEDICARE PART A & B Care Teams Director Of Community Education Relationship Specialty Start Date End Date Mabel Ambrose MD [address] [place] [address] PCP - General Internal Medicine 08/28/20 Radha Tillman APRN [address] [address] Nurse Practitioner Surgery, Transplant 11/28/19 Aston Woods MD [address] [address] Physician Nephrology 11/28/19 Katey Nevarez PsyD [address] [address] Clinical Psychologist Psychology 02/18/21 Jenny Rodríguez, PhD [address] [place] [phone] Clinical Psychologist Psychology 04/03/21
--- OUTSIDE RECORDS SUMMARY | 2025-07-11 10:26 | XMS_ITS | Encounter Summary ---
Author Organization [facility] Address [address] [place] [address] Care Team Providers Care Magnetic Doctor Name Role Phone Radha Tillman APRN Unavailable Aston Woods MD Unavailable [phone] Mabel Ambrose MD Primary Care Pr ovider Katey Nevarez PsyD Unavailable +1-000-00 0-0000 Jenny Rodríguez PhD Unavailable [phone] Encounter Details Date Type Department Care Team (Late st Contact Info) Description 08/15/2021 Scanned Document [facility] [address] [phone] Renu Crain MA 85 [facility] [address] [place] [address] Social History Tobacco Use Types Packs/Day Years [...] or suspected to have Coronavirus / COVID-19? No / Unsure 08/14/2021 9:16 AM EDT documented as of this encounter Plan of Treatment Not on file documented as of this encounter Visit Diagnoses Not on filedocumented in this encounter Care Teams Magnetic Doctor Relationship Specialty Start Date End Date Mabel Ambrose MD [address] [place] [phone] PCP - General Internal Medicine 08/28/20 Radha Tillman APRN [address] [place] [address] Nurse Practitioner Surgery, Transplant 11/28/19 Aston Woods MD [address] [place] [address] Physician Nephrology 11/28/19 Katey Nevarez PsyD [address] [place] [address] Clinical Psychologist Psychology 02/18/21 Jenny Rodríguez, PhD [address] [place] [phone] Clinical Psychologist Psychology 04/03/21 documented as of this encounter
--- OUTSIDE RECORDS SUMMARY | 2025-07-11 10:26 | XMS_ITS | Encounter Summary ---
Author Organization [facility] Address [address] [place] [address] Care Team Providers Care Food Cashier Name Role Phone Unknown Primary Care Provider +[phone] -[phone] Radha Tillman APRN Unavailable Aston Woods MD Unavailable [phone] Mabel Ambrose MD Primary Care Pr ovider Katey Nevarez PsyD Unavailable +1-000-00 0-0000 Jenny Rodríguez PhD Unavailable [phone] Encounter Details Date Type Department Care Team (Late st Contact Info) Description 12/25/2019 Telephone [facility] [address] [id number] Leslie Carter MA [address] [address] Social History Tobacco Use Types Packs/Day Years Used Date Smoking Tobacco: Never Assessed Sex and Gender Information Value Date Recorded Sex Assigned at Not on file Legal Sex Male 3:44 PM EST Gender Identity Not on file Sexual Orientation Not on file documented as of this encounter Miscellaneous Notes * Telephone Encounter - Leslie Carter MA - 11/08/2020 9:42 AM EST Called patient to remind him that he needs to call his lead technical architect and schedule his stress test, patient said he will and arrange. * Telephone Encounter - Leslie Carter MA - 08/20/2020 1:40 PM EDT Spoke with Lachelle at dialysis and she said that they ordered patients CT of abdomen for 08/28/2020. * Telephone Encounter - Renu Crain MA - 08/13/2020 2:29 PM EDT Taisha charge Nurse from [facility] called patient told her he needs a CT of his Abdomen and Dr.Jonathan Newsome wants to know more detail on how to order this. She can be reached at [phone]. You can ask for her or Flores * Telephone Encounter - Leslie Carter MA - 07/12/2020 10:14 AM EDT Patient called office and wanted to know if we had received his colonoscopy and I informed him thatwe had not. I called [facility] and spoke with Santos and she said she will send a message to the doctor an have him fax it over to us. Patient also said he will call and schedule his CT of abdomen as well. * Telephone Encounter - Leslie Carter MA - 06/24/2020 2:56 PM EDT Left patient voicemail to see if he has rescheduled his colonoscopy and CT. Per RN note she was going to have the dialysis unit see if they could help with patients work up. * Telephone Encounter - Leslie Carter MA - 05/29/2020 3:05 PM EDT Spoke to patient and he said he missed his CT of abdominal appointment and will call to reschedule.Patient is scheduled for his colonoscopy tomorrow. * Telephone Encounter - Leslie Carter MA - 04/04/2020 11:05 AM EDT Patient called and wanted to know what he has to complete. [facility] and [facility] as well as Colonoscopy. Patient said he will call his PC and have him do referral for colonoscopy. * Telephone Encounter - Leslie Carter MA - 04/02/2020 2:40 PM EDT Left patient voicemail, he should be able to schedule his abdominal CT since [facility] has opened their schedule back up. * Telephone Encounter - Leslie Carter MA - 03/15/2020 12:43 PM EDT Spoke with Kobi at [facility] and she said they are opening their schedule next week for CT's. I left patient a voicemail to have him scheduled. * Telephone Encounter - Leslie Carter MA - 03/06/2020 2:45 PM EDT Left voicemail to follow up with patient and see if he can schedule his abdominal CT * Telephone Encounter - Leslie Carter MA - 12/25/2019 3:39 PM EST Spoke with patient regarding his Abdominal CT and provided him with phone number to call and schedule appointment. documented in this encounter Plan of Treatment Not on file documented as of this encounter Visit Diagnoses Not on filedocumented in this encounter Care Teams Food Cashier Relationship Specialty Start Date End Date Unknown Unknow Provider Address PCP - General 09/27/19 08/27/20 Mabel Ambrose MD [address] [place] [address] PCP - General Internal Medicine 08/28/20 Radha Tillman APRN [address] [place] [address] Nurse Practitioner Surgery, Transplant 11/28/19 Aston Woods MD 85 [place] [address] Physician Nephrology 11/28/19 Katey Nevarez PsyD [address] [address] Clinical Psychologist Psychology 02/18/21 Jenny Rodríguez, PhD [address] [place] [phone] Clinical Psychologist Psychology 04/03/21 documented as of this encounter
--- OUTSIDE RECORDS SUMMARY | 2025-07-11 10:26 | XMS_ITS ---
Author Organization [address] [place] [address] [place] [phone] Phone Care Team Providers Care Muck Boss Name Role Phone Mabel Ambrose MD Primary Care Prov ider [facility] - Social Service Status:Ongoing (Active) Start date:02/15/2025 Enrollment date:02/15/2025 Enrollment reason:Referred from clinic Related program episode:Community Health Worker Program (Closed) Overview Social Service service of Community Health Worker Program Case Team Name Relationship Phone Darron Dejesus Community Health Worker(Responsi ble Staff) Continued Care and Services Coordination
--- OUTSIDE RECORDS SUMMARY | 2025-07-11 10:26 | XMS_ITS | Encounter Summary ---
Author Organization [facility] Address [address] [place] [address] Care Team Providers Care Electric Refrigerator Preparer Name Role Phone Radha Tillman APRN Unavailable Aston Woods MD Unavailable [phone] Mabel Ambrose MD Primary Care Pr ovider Katey Nevarez PsyD Unavailable +1-000-00 0-0000 Jenny Rodríguez PhD Unavailable Encounter Details Date Type Department Care Team (Late st Contact Info) Description 02/05/2021 Abstract [facility] [address] [address] Leo Richard, RN [address] [address] Social History Tobacco Use Types Packs/Day Years [...] on filedocumented in this encounter Care Teams Electric Refrigerator Preparer Relationship Specialty Start Date End Date Mabel Ambrose MD [address] [address] PCP - General Internal Medicine 08/28/20 Radha Tillman APRN [address] [address] Nurse Practitioner Surgery, Transplant 11/28/19 Aston Woods MD [address] [address] Physician Nephrology 11/28/19 Katey Nevarez PsyD [address] [place] [address] Clinical Psychologist Psychology 02/18/21 Jenny Rodríguez, PhD [address] [place] [address] Clinical Psychologist Psychology 04/03/21 documented as of this encounter
--- OUTSIDE RECORDS SUMMARY | 2025-07-11 10:26 | XMS_ITS | Encounter Summary ---
Author Organization [facility] Address [address] [id number] Care Team Providers Care Facilities Specialist Name Role Phone Radha Tillman APRN Unavailable Aston Woods MD Unavailable [phone] Mabel Ambrose MD Primary Care Pr ovider Katey Nevarez PsyD Unavailable +1-000-00 0-0000 Jenny Rodríguez PhD Unavailable [phone] Encounter Details Date Type Department Care Team (Late st Contact Info) Description 03/26/2023 Scanned Document [facility] & [facility] [address] [address] Provider, MD Keli [address] [place] [address] Social History Tobacco Use Types Packs/Day Years [...] on filedocumented in this encounter Care Teams Facilities Specialist Relationship Specialty Start Date End Date Mabel Ambrose MD [address] [phone] PCP - General Internal Medicine 08/28/20 Radha Tillman APRN [address] [address] Nurse Practitioner Surgery, Transplant 11/28/19 Aston Woods MD [address] [address] Physician Nephrology 11/28/19 Katey Nevarez PsyD [address] [address] Clinical Psychologist Psychology 02/18/21 Jenny Rodríguez, PhD [address] [place] [address] Clinical Psychologist Psychology 04/03/21 documented as of this encounter
--- OUTSIDE RECORDS SUMMARY | 2025-07-11 10:26 | XMS_ITS | Encounter Summary ---
Author Organization [facility] Address [address] [place] [address] Care Team Providers Care Inventory Planner Name Role Phone Radha Tillman APRN Unavailable [phone] Aston Woods MD Unavailable [phone] Mabel Ambrose MD Primary Care Pr ovider Katey Nevarez PsyD Unavailable +1-000-00 0-0000 Jenny Rodríguez PhD Unavailable [phone] Encounter Details Date Type Department Care Team (Late st Contact Info) Description 02/11/2021 Scanned Document [facility] 85 [facility] [address] [place] [phone] Provider, MD Keli [address] [place] [address] Social History Tobacco Use Types Packs/Day Years [...] have Coronavirus / COVID-19? Unable to assess 02/11/2021 10:27 AM EDT documented as of this encounter Plan of Treatment Not on file documented as of this encounter Visit Diagnoses Not on filedocumented in this encounter Care Teams Inventory Planner Relationship Specialty Start Date End Date Mabel Ambrose MD [address] [place] [address] PCP - General Internal Medicine 08/28/20 Radha Tillman APRN [address] [place] [address] Nurse Practitioner Surgery, Transplant 11/28/19 Aston Woods MD [address] [place] [address] Physician Nephrology 11/28/19 Katey Nevarez PsyD [address] [place] [address] Clinical Psychologist Psychology 02/18/21 Jenny Rodríguez, PhD [address] [place] [address] Clinical Psychologist Psychology 04/03/21 documented as of this encounter
--- OUTSIDE RECORDS SUMMARY | 2025-07-11 10:26 | XMS_ITS | Clinical Summary ---
Author Organization [address] [facility] Address [address] [place] [address] Phone Care Team Providers Care Supervisor Costuming Name Role Phone Mabel Ambrose MD Primary Care Prov ider Allergies Active Allergy Reactions Criticality Noted Date Comments Penicillins Rash Low 02/08/2006 Unknown Medications calcium acetate,phosp hat bind, (PHOSLO) 667 mg capsule Take 2 capsules by mouth 3 times daily. 12/04/19 21 Active insulin lispro 100 unit/mL injection INJECT 88 TO 100 UNITS UNDER THE SKIN DAILY PER INSULIN PUMP 11/14/19 21 Active infusion set for insulin pump infusion set Active insulin aspart (NovoLOG U-100 Insulin aspart) 100 unit/mL injection INJECT 88 TO 100 UNITS SUBCUTANEOUSLY ONCE DAILY PER INSULIN PUMP 12/23/19 22 Active omeprazole (PriLOSEC) [address] capsule Take 1 capsule by mouth daily for 360 days. 09/05/20 21 Active lancets 33 gauge misc 1 Device by Does not apply route 4 times daily. USE 1 STRIP FOUR TIMES A DAY 01/18/20 20 Active blood sugar diagnostic (OneTouch Verio test strips) test strip USE 1 STRIP TO CHECK GLUCOSE 4 TIMES DAILY 04/11/20 21 Active atorvastatin (LIPITOR) 80 mg tablet Take 1 tablet by mouth once daily 90 tablet 2 10/24/20 24 Active sertraline (ZOLOFT) 100 mg tablet Take 1 tablet by mouth once daily 90 tablet 1 10/30/20 24 Active Additional Information Patient taking differently: 50 mgoral Daily, Informant: Self, Reported on 12/07/2024 levothyroxine (SYNTHROID, LEVOTHROID) 200 mcg tablet Take 1 tablet (200 mcg total) by mouth 1 (one) time each day before breakfast. Active ALPRAZolam (XANAX) 0.5 mg tablet Take 1 tablet (0.5 mg total) by mouth at bedtime as needed. 10/26/20 24 Active furosemide (LASIX) 40 mg tablet Take 1 tablet (40 mg total) by mouth 1 (one) time each day. Active celecoxib (CeleBREX) 100 mg capsule Take 1 capsule (100 mg total) by mouth 2 (two) times a day. Active ubrogepant (Ubrelvy) 100 mg tablet Take 1 tablet (100 mg total) by mouth 1 (one) time. Active nitroglycerin (NITROSTAT) 0.[address] 1 tablet (0.4 mg total) under the tongue every 5 (five) minutes if needed for chest pain. Active diclofenac (Cataflam) 50 mg tabletIndicat ions:Pain of right hip Take 1 tablet (50 mg total) by mouth 3 (three) times a day. 90 each 12/21/19 25 Active metoprolol succinate (TOPROL-XL) 25 mg 24 hr tabletIndicat ions:Atherosc lerotic heart disease of [place] coronary artery without angina pectoris Take 1/2 (one-half) tablet by mouth once daily 45 tablet 3 02/02/20 25 Active ezetimibe (ZETIA) 10 mg tabletIndicat ions:Atherosc lerosis of marshall coronary artery of [place]all heart without angina pectoris,Stag e 3b chronic kidney disease (CMS/HCC V24, CMS/HCC V28) TAKE 1 TABLET BY MOUTH ONCE DAILY 30 tablet 2 07/11/20 25 Active ezetimibe (ZETIA) 10 mg tabletIndicat ions:Atherosc lerosis of marshall coronary artery of marshall heart without angina pectoris,Stag e 3b chronic kidney disease (CMS/HCC V24, CMS/HCC V28) Take 1 tablet (10 mg total) by mouth 1 (one) time each day. 90 each 1 12/07/19 25 2024 Discontinued Active Problems Problem Noted Date Diagnosed Date Kidney transplant status 06/12/2025 Preop cardiovascular exam 12/07/2024 History of non-ST elevation myocardial infarctio n (NSTEMI) 10/10/2024 Essential hypertension 02/04/2021 Mixed hyperlipidemia 02/04/2021 [place] [place] 01/18/2020 NSTEMI (non-ST elevated myoc ardial infarction) [place] [place] [facility] V28) 04/12/2019 Overview (08/14/2024): 03/2019. Total occlusion of LAD. S/p stent placement at [facility]. Obstructive sleep apnea 10/16/2018 Overview (08/14/2024): SMS Home Polysomnogram: Date 10/14/2018; AHI 56, Unclassified apneas 0; Obstructive apneas 42; Central apneas 0; Mixed apneas 0; hypopneas 38; average oxygen saturation 90% (lowest 60% with saturations <88% for 5% or more of study) - Obstructive Sleep Apnea - severe; mostly obstructive apneas and hypopneas; with sleep related hypoventilation by 2018 home polysomnogram. Pain of both hip joints 10/14/2016 Overview (08/14/2024): MR hips, 10/11/2019 Left greater than right degenerative changes with loss of hyaline cartilage extending down to bony acetabulum, adjacent subchondral cystic change. Ordered by Dr. Najera Cataract 02/14/2013 Overview (08/14/2024): Bilateral. CTS (carpal tunnel syndrome) 02/14/2013 DM (diabetes mellitus), type 1 with neurological complications ([facility] V24, [facility] V28) 02/14/2013 Overview (08/14/2024): CTS. Microalbuminuria 02/14/2013 Retinopathy of both eyes 02/14/2013 Overview (08/14/2024): Bilateral, moderate. Depression 01/27/2013 Diabetes mellitus with perip heral circulatory disorder ([facility] V24, 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 DM hyperosmolarity type I, u ncontrolled ([facility] [place] [facility] [place]) 02/08/2006 Overview (08/14/2024): -status post laser therapy for retinopathy Erectile dysfunction 02/08/2006 Esophageal reflux 02/08/2006 Hypothyroidism 02/08/2006 Pure hypercholesterolemia 02/08/2006 Immunizations Name Administration Dates Next Due COVID-19 (Pfizer/Comirnaty) 12yo and older 10/31/2023 H1N1 Inj Preservative Free 11/06/2009 Influenza Quadravalent, 0.5m l (Fluzone High-dose) 65yo and older 07/11/2020 Influenza Quadravalent, MDCK , 0.5ml, preservative free (Flucelvax) 6mo and older 08/29/2018 Influenza trivalent, 0.5mL, preservative free (Fluarix; FluLaval; Fluzone) ages 6mo and older (Afluria) 3 years and older 07/13/2017,09/03/2015,09/28/2012,2008,08/06/2006,10/21/2005 Influenza trivalent, with preservative (Fluzone; Afluria) 6mo and older 07/13/2017,10/04/2016,09/03/2015,2011,07/18/2009,08/06/2006,10/21/2005 Influenza, Unspecified 07/23/2024,09/12/2022,01/2016 Moderna SARS-CoV-2 COVID-19, mRNA, LNP-S, preservative free 10/03/2022 Pneumococcal conjugate 13 va lent (Prevnar 13, PCV13) 2mo and older 08/29/2018 Zoster recombinant (Shingrix ) 19yo and older 04/18/2024,03/27/2024,10/31/2023 Surgical History Surgery Date Site/Laterality Comments CORONARY STENT PLACEMENT 03/07/2019 MID LAD 100% occlusion Medical History Medical History Date Comments Diabetes mellitus ([facility] [place], [facility] V28) End stage renal disease ([facility] [place], [facility] V2 8) hemodialysis 3 times a wekk Hypertension Sleep apnea NSTEMI (non-ST elevated myoc ardial infarction) ([facility] [place], [facility] [place] Social History Tobacco Use Types Packs/Day Years Used Date Smoking Tobacco: Former Cigars Passive Smoke Exposure: Never Smokeless Tobacco: Never Tobacco Cessation:Counseling Given: Not Answered Alcohol Use Standard Drinks/Week Comments Not Currently 0 (1 standard drink = 0.6 oz pur e alcohol) Housing Instability Answer Date Recorde d Are you worried that in the next 2 months you may not have stable housing? No 02/19/2025 Food Access & Nutrition Answer Date Rec orded Do you have access to a vari ety of food including fruits and vegetables? Yes 02/19/2025 Access to Healthcare Answer Date Record ed Within the last 3 months, ho jackeline many times did you visit the emergency department for your medical care? 0 02/19/2025 Health Literacy Answer Date Recorded How often do you need to hav e someone help you when you read instructions, pamphlets, or other written material from your doctor or pharmacy? Never 02/19/2025 Caregiver: How often do you need to have someone help you when you read instructions, pamphlets, or other written material from your doctor or pharmacy? Not on file 02/19/2025 Financial Risk Answer Date Recorded How hard is it for you to pa y for the very basics like food, housing, medical care, and air conditioning / heating? Not very hard 02/19/2025 Transportation Answer Date Recorded Has the lack of transportati on kept you from meetings, work, or from getting things needed for daily living? No Has the lack of transportati on kept you from medical appointments or from getting medications? No 02/19/2025 Social Isolation Answer Date Recorded How often do you feel lonely or isolated from th ose around you? Never 02/19/2025 Food Risk Answer Date Recorded Within the past 12 months we worried whether our food would run out before we got money to buy more. Never true 02/19/2025 Within the past 12 months th e food we bought just didn't last and we didn't have money to get more. Never true 02/19/2025 Dependent Care Answer Date Recorded Do you need help finding or paying for care for your loved ones. For example, child development director or elderly care for an older adult? No 02/19/2025 Education Answer Date Recorded Do you think completing more education or training, like finishing a GED, going to college, or learning a trade, would be helpful for you? No 02/19/2025 Employment and Income Answer Date Recor ded During the last four weeks, have you been actively looking for work? No 02/19/2025 Living Situation Answer Date Recorded What is your living situation? 0 02/19/2025 Sex and Gender Information Value Date Recorded Sex Assigned at Not on file Legal Sex Male 4:06 PM EST Gender Identity Not on file Sexual Orientation Not on file Obstetrics History Last Filed Vital Signs Vital Sign Reading Time Taken Comments Blood Pressure 121/66 12/21/2024 3:08 PM EST Pulse 86 12/21/2024 3:08 PM EST Temperature 36.6 C (97.9 F) 12/21/2024 3:08 PM EST Respiratory Rate - - Oxygen Saturation 95% 12/21/2024 3:08 PM EST Inhaled Oxygen Concentration - - Weight 98.6 kg (217 lb 6.4 oz) 12/07/2024 1:00 P M EST Height 177.8 cm (5' 10 ) 12/07/2024 1:00 PM EST Body Mass Index 31.19 12/07/2024 1:00 PM EST Plan of Treatment Upcoming Encounters Date Type Department Care Team (Late st Contact Info) Description 07/12/2025 1:40 PM EDT Office Visit [facility] [address] [place] [address] Erica Pedraza PA [address] [place] [address] [place] [address] Health Maintenance Due Date Last Done Comments Diabetes: Annual Foot Exam 1964 Diabetes: Annual Retina Eye Exam 1964 Hepatitis A Vaccines (1 of 2 - Risk 2-dose series) 1973 RSV Immunization Adult Patients (1 - Risk 60-74 years 1-dose series) 2014 Pneumococcal Vaccine: 50+ Years (2 of 2 - PPSV23) 10/24/2018 08/29/2018 DTaP,Tdap,and Td Vaccines (2 - Td or Tdap) 07/23/2019 07/23/2009 Diabetes: Annual GFR (Glomerular Filtration Rate) 04/29/2021 04/29/2020 Abdominal Aortic Aneurysm (AAA) Screen 10/10/2022 Hypertension/CHF/CAD Annual BMP Blood Test 10/15/2022 04/29/2020 Depression Screening 11/01/2024 06/20/2024 Diabetes: Blood Sugar Control Test (HGBA1C) 05/08/2025 11/08/2024, 11/08/2024, 04/29/2020 Colorectal Cancer Screening: Colonoscopy 05/30/2025 09/19/2020, 05/30/2020 Falls Risk Assessment 06/20/2025 06/20/2024 Medicare Annual Wellness Visit 06/20/2025 06/20/2024 COVID-19 Vaccine ( season) 2025 10/31/2023, 10/03/2022, 04/21/2022, Additional history exists Influenza Vaccine (#1) 2025 , 09/12/2022, 07/11/2020, Additional history exists Social Influencers of Health Screening 02/19/2026 02/19/2025 Diabetes: Annual Urine Albumin-Creatinine Ratio (uACR) 06/19/2026 06/19/2025, 10/07/2015 Cholesterol Screening (Lipid Panel) 12/11/2029 12/11/2024, 11/08/2024, 06/27/2024, Additional history exists Hepatitis B Vaccines Completed 03/13/2022, 02/09/2022, 01/02/2022, Additional history exists Hepatitis C Screening Completed 05/28/2022 Zoster Vaccines Completed 04/18/2024, 03/02, 10/31/2023 HIB Vaccines Aged Out No longer eligi ble based on patient's age to complete this topic HPV Vaccines Aged Out No longer eligi ble based on patient's age to complete this topic IPV Vaccines Aged Out No longer eligi ble based on patient's age to complete this topic MMR Vaccines Aged Out No longer eligi ble based on patient's age to complete this topic Meningococcal ACWY Vaccine Aged Out N o longer eligible based on patient's age to complete this topic Meningococcal B Vaccine Aged Out No l onger eligible based on patient's age to complete this topic RSV Immunization Patients Under 20 months Aged Out No longer eligible based on patient's age to complete this topic Varicella Vaccines Aged Out No longer eligible based on patient's age to complete this topic Goals Goal Patient Goal Type Associated Problems Recent Progress Patient-Stated? Author Pt will work to ensure has adequate care yumikoich will also help pt recover from recetn Kidney transplant General Yes Zhane Prater, KATHIE Note: Review Pace Program for Follow up on additional care options for extra hours/day program for Ptr will follow up for all of his provider visits to have optimal healing Procedures Procedure Name Priority Date/Time Associated Diagnosis Comments LIPID PANEL Routine 06/27/2024 DEPRESSION SCREENING Routine 06/20/2024 FALLS RISK ASSESSMENT Routine 06/20/2024 COLONOSCOPY Routine 09/19/2020 ANNUAL BMP BLOOD TEST Routine 04/29/2020 HEMOGLOBIN A1C Routine 04/29/2020 URINE ALBUMIN CREATININE RATIO Routine 10/07/2015 from Last 3 Months or Most Recently Relevant to Health Maintenance Results * (ABNORMAL) Lipid panel (06/27/2024) Pathologist [facility] LDL/HDL Ratio 4 0 - 4 Triglycerides 181(A) 0 - 150 mg/dL Cholesterol 201(A) 0 - 200 mg/dL HDL 47 >=40 mg/dL LDL Cholesterol 118(A) 0 - 100 mg/dL Blood Venous blood specimen / Unknown Result [facility] Provider LAB BLOOD ORDERABLES Yue l Result * Falls Risk Assessment (06/20/2024) [facility] Falls Risk Assessment Abstracted Result [facility] HEALTH MAINTENANCE Final Result * Depression Screening (06/20/2024) [facility] Depression Screening Abstracted Result [facility] HEALTH MAINTENANCE Final Result * Colonoscopy (09/19/2020) [facility] Colonoscopy No Interpretation , Abstracted Anatomical Region Laterality Modality Other Result [facility] HEALTH MAINTENANCE Final Result * Annual BMP Blood Test (04/29/2020) [facility] Annual BMP Blood Test Abstracted Result [facility] HEALTH MAINTENANCE Final Result * (ABNORMAL) Hemoglobin A1c (04/29/2020) [facility] Hemoglobin A1C 8.0(A) <=6.5 % Blood Venous blood specimen / Unknown Result [facility] Provider LAB BLOOD ORDERABLES Yue l Result * Urine Albumin Creatinine Ratio (10/07/2015) [facility] Urine Albumin Creatinine Ratio Abstracted Result [facility] HEALTH MAINTENANCE Final Result from Last 3 Months or Most Recently Relevant to Health Maintenance Insurance MEDICARE [place]ICAID - [place] Care Teams Supervisor Costuming Relationship Specialty Start Date End Date Mabel Ambrose MD [address] [place] [phone] PCP - General Internal Medicine 09/15/24
--- OUTSIDE RECORDS SUMMARY | 2025-07-11 10:26 | XMS_ITS | Encounter Summary ---
Author Organization [facility] Address [address] [place] [address] Care Team Providers Care Factory Laborer Name Role Phone Radha Tillman APRN Unavailable Aston Woods MD Unavailable [phone] Mabel Ambrose MD Primary Care Pr ovider Katey Nevarez PsyD Unavailable +[id number] 0-0000 Jenny Rodríguez PhD Unavailable [phone] Encounter Details Date Type Department Care Team (Late st Contact Info) Description 07/17/2021 Telephone [facility] [address] [facility] [address] [place] [address] Regan Mata MA [address] [facility] [address] [place], [place] [id number] Social History Tobacco Use Types Packs/Day Years Used Date Smoking Tobacco: Never Assessed PHQ-2 Answer Date Recorded PHQ-2 Total Score 0 06/19/2021 Sex and Gender Information Value Date Recorded Sex Assigned at Not on file Legal Sex Male 3:44 PM EST Gender Identity Not on file Sexual Orientation Not on file COVID-19 Exposure Response Date Recorded In the last month, have you been in contact with someone who was confirmed or suspected to have Coronavirus / COVID-19? Unable to assess 06/18/2021 11:36 AM EDT documented as of this encounter Miscellaneous Notes * Telephone Encounter - Regan Mata MA - 07/17/2021 2:09 PM EDT Called patient to set up virtual appointment with Psych Fellow, Patient stated that patient isnot home was unaware that he have an appointment with us today. She would like to reschedule appointment. Patient is requesting a call back. documented in this encounter Plan of Treatment Not on file documented as of this encounter Visit Diagnoses Not on filedocumented in this encounter Care Teams Factory Laborer Relationship Specialty Start Date End Date Mabel Ambrose MD [address] [place] [phone] PCP - General Internal Medicine 08/28/20 Radha Tillman APRN [address] [place] [address] Nurse Practitioner Surgery, Transplant 11/28/19 Aston Woods MD [address] [place] [address] Physician Nephrology 11/28/19 Katey Nevarez PsyD [address] [place] [address] Clinical Psychologist Psychology 02/18/21 Jenny Rodríguez, PhD [address] [place] [address] Clinical Psychologist Psychology 04/03/21 documented as of this encounter
--- OUTSIDE RECORDS SUMMARY | 2025-07-11 10:26 | XMS_ITS | Encounter Summary ---
Author Organization [facility] Address [address] [place], [place] [id number] Care Team Providers Care Wares Sorter Name Role Phone Unknown Primary Care Provider +[id number] -0000 Radha Tillman APRN Unavailable [phone] sAton Woods MD Unavailable [phone] Mabel Ambrose MD Primary Care Pr ovider Katey Nevarez PsyD Unavailable +1-000-00 0-0000 Jenny Rodríguez PhD Unavailable [phone] Encounter Details Date Type Department Care Team (Late st Contact Info) Description 05/27/2020 Scanned Document [facility] Transplant [facility] & [facility] [address] [address] Daphney Gupta [address] [address] Social History Tobacco Use Types Packs/Day Years [...] on filedocumented in this encounter Care Teams Wares Sorter Relationship Specialty Start Date End Date Unknown Unknow Provider Address PCP - General 09/27/19 08/27/20 Mabel Ambrose MD [address] [place] [address] PCP - General Internal Medicine 08/28/20 Radha Tillman APRN [address] [place] [address] Nurse Practitioner Surgery, Transplant 11/28/19 Aston Woods MD [address] [place] [address] Physician Nephrology 11/28/19 Katey Nevarez PsyD [address] [place] [address] Clinical Psychologist Psychology 02/18/21 Jenny Rodríguez, PhD [address] [place] [address]28 Clinical Psychologist Psychology 04/03/21 documented as of this encounter
--- OUTSIDE RECORDS SUMMARY | 2025-07-11 10:26 | XMS_ITS | Encounter Summary ---
Author Organization [facility] Address [address] [place], [place] [phone] Care Team Providers Care Mutton Puncher Name Role Phone Unknown Primary Care Provider +[id number] -0000 Radha Tillman APRN Unavailable [phone] Aston Woods MD Unavailable [phone] Mabel Ambrose MD Primary Care Pr ovider Katey Nevarez PsyD Unavailable +1-000-00 0-0000 Jenny Rodríguez PhD Unavailable Encounter Details Date Type Department Care Team (Late st Contact Info) Description 11/29/2019 Scanned Document [facility] Transplant Program & [facility] [address] [address] Daphney Gupta [address] [address] Social History Tobacco Use Types Packs/Day Years [...] on filedocumented in this encounter Care Teams Mutton Puncher Relationship Specialty Start Date End Date Unknown Unknow Provider Address PCP - General 09/27/19 08/27/20 Mabel Ambrose MD [address] [place] [phone] PCP - General Internal Medicine 08/28/20 Radha Tillman APRN [address] [place] [address] Nurse Practitioner Surgery, Transplant 11/28/19 Aston Woods MD [address] [place] [address] Physician Nephrology 11/28/19 Katey Nevarez PsyD [address] [place] [address] Clinical Psychologist Psychology 02/18/21 Jenny Rodríguez, PhD [address] [place] [address]49 Clinical Psychologist Psychology 04/03/21 documented as of this encounter
--- OUTSIDE RECORDS SUMMARY | 2025-07-11 10:26 | XMS_ITS | Encounter Summary ---
Author Organization [facility] Address [address] [place] [id number] Care Team Providers Care Optician Apprentice Dispensing Name Role Phone Radha Tillman APRN Unavailable Aston Woods MD Unavailable [phone] Mabel Ambrose MD Primary Care Pr ovider Katey Nevarez PsyD Unavailable +1-000-00 0-0000 Jenny Rodríguez PhD Unavailable [phone] Encounter Details Date Type Department Care Team (Late st Contact Info) Description 03/05/2021 Scanned Document [facility] [address] [facility] [address] [place] [address] Provider, MD K[address] [place] [address] Social History Tobacco Use Types Packs/Day Years [...] on filedocumented in this encounter Care Teams Optician Apprentice Dispensing Relationship Specialty Start Date End Date Mabel Ambrose MD [address] [place] [phone] PCP - General Internal Medicine 08/28/20 Radha Tillman APRN [address] [place] [address] Nurse Practitioner Surgery, Transplant 11/28/19 Aston Woods MD [address] [place] [address] Physician Nephrology 11/28/19 Katey Nevarez PsyD [address] [place] [address] Clinical Psychologist Psychology 02/18/21 Jenny Rodríguez, PhD [address] [place] [phone] Clinical Psychologist Psychology 04/03/21 documented as of this encounter
--- OUTSIDE RECORDS SUMMARY | 2025-07-11 10:26 | XMS_ITS | Encounter Summary ---
Author Organization Formerly [facility] Address [address] [place] [address] Care Team Providers Care Elevator Mechanic Apprentice Name Role Phone Radha Tillman APRN Unavailable [phone] Aston Woods MD Unavailable [phone] Mabel Ambrose MD Primary Care Pr ovider Katey Nevarez PsyD Unavailable +1-000-00 0-0000 Jenny Rodríguez PhD Unavailable Encounter Details Date Type Department Care Team (Late st Contact Info) Description 10/28/2020 Scanned Document [facility] [address] [phone] Provider, Keli, [address] [place] [address] Social History Tobacco Use Types Packs/Day Years [...] on filedocumented in this encounter Care Teams Elevator Mechanic Apprentice Relationship Specialty Start Date End Date Mabel Ambrose MD [address] [place] [address] PCP - General Internal Medicine 08/28/20 Radha Tillman APRN [address] [address] Nurse Practitioner Surgery, Transplant 11/28/19 Aston Woods MD [address] [address] Physician Nephrology 11/28/19 Katey Nevarez PsyD [address] [place] [address] Clinical Psychologist Psychology 02/18/21 Jenny Rodríguez, PhD [address] [place] [address] Clinical Psychologist Psychology 04/03/21 documented as of this encounter
--- OUTSIDE RECORDS SUMMARY | 2025-07-11 10:26 | XMS_ITS | Encounter Summary ---
Author Organization Formerly [facility] Address [address] [place] [phone] Care Team Providers Care Supervisor Mold Yard Name Role Phone Unknown Primary Care Provider +1-000-000 -0000 Radha Tillman APRN Unavailable [phone] Aston Woods MD Unavailable [phone] Mabel Ambrose MD Primary Care Pr ovider Katey Nevarez PsyD Unavailable +1-000-00 0-0000 Jenny Rodríguez PhD Unavailable Encounter Details Date Type Department Care Team (Late st Contact Info) Description 08/23/2020 Scanned Document [facility] [address] [place] [phone] Provider, MD Keli [address] [place] [address] Social History Tobacco Use Types Packs/Day Years [...] on filedocumented in this encounter Care Teams Supervisor [place] Yard Relationship Specialty Start Date End Date Unknown Unknow Provider Address PCP - General 09/27/19 08/27/20 Mabel Ambrose MD [address] [place] [address] PCP - General Internal Medicine 08/28/20 Radha Tillman APRN [address] [place] [address] Nurse Practitioner Surgery, Transplant 11/28/19 Aston Woods MD [address] [place] [address] Physician Nephrology 11/28/19 Katey Nevarez PsyD [address] [place] [address] Clinical Psychologist Psychology 02/18/21 Jenny Rodríguez, PhD [address] [place] [address] Clinical Psychologist Psychology 04/03/21 documented as of this encounter
--- OUTSIDE RECORDS SUMMARY | 2025-07-11 10:26 | XMS_ITS | Encounter Summary ---
Author Organization [facility] Address [address] [facility] [address] [place] [address] Phone Care Team Providers Care Warehouse Foreman Name Role Phone Mabel Ambrose MD Primary Care Pr ovider Reason for Visit * Reason Onset Date Comments Med Refill 07/11/2025 Encounter Details Date Type Department Care Team (Late st Contact Info) Description 07/11/2025 Refill [facility] [address] [facility] [address] [place] [phone] Nydia Emiliana [address] [facility] [address] [place] [phone] Social History Tobacco Use Types Packs/Day Years [...] EDT Office Visit [facility] [address] [facility] [address] [place] [phone] Gigi Newsome MD [address] [phone] documented as of this encounter Visit Diagnoses Not on filedocumented in this encounter Care Teams Warehouse Foreman Relationship Specialty Start Date End Date Mabel Ambrose MD [address] [place] [address] PCP - General 11/11/20 documented as of this encounter
--- OUTSIDE RECORDS SUMMARY | 2025-07-11 10:26 | XMS_ITS | Encounter Summary ---
Author Organization [facility] Address [address] [place] [phone] Care Team Providers Care Insulation Manager Name Role Phone Radha Tillman APRN Unavailable Aston Woods MD Unavailable [phone] Mabel Ambrose MD Primary Care Pr ovider Katey Nevarez PsyD Unavailable +1-000-00 0-0000 Jenny Rodríguez PhD Unavailable [phone] Encounter Details Date Type Department Care Team (Late st Contact Info) Description 05/15/2021 Scanned Document [facility] [address] [address] Provider, MD Keli [address] [place] [address] Social History Tobacco Use Types Packs/Day Years [...] on filedocumented in this encounter Care Teams Insulation Manager Relationship Specialty Start Date End Date Mabel Ambrose MD [address] [address] PCP - General Internal Medicine 08/28/20 Radha Tillman APRN [address] [address] Nurse Practitioner Surgery, Transplant 11/28/19 Aston Woods MD [address] [place] [address] Physician Nephrology 11/28/19 Katey Nevarez PsyD [address] [place] [address] Clinical Psychologist Psychology 02/18/21 Jenny Rodríguez, PhD [address] [place] [address] Clinical Psychologist Psychology 04/03/21 documented as of this encounter
--- OUTSIDE RECORDS SUMMARY | 2025-07-11 10:26 | XMS_ITS | Encounter Summary ---
Author Organization [facility] Address [address] [place] [phone] Care Team Providers Care Staffing Account Manager Name Role Phone Unknown Primary Care Provider +1-000-000 -0000 Radha Tillman APRN Unavailable Aston Woods MD Unavailable [phone] Mabel Ambrose MD Primary Care Pr ovider Katey Nevarez PsyD Unavailable +1-000-00 0-0000 Jenny Rodríguez PhD Unavailable [phone] Encounter Details Date Type Department Care Team (Late st Contact Info) Description 12/25/2019 Scanned Document [facility] Transplant [facility] & [facility] [address] [place] [phone] Provider, MD Keli [address] [place] [address] Social History Tobacco Use Types Packs/Day Years [...] on filedocumented in this encounter Care Teams Staffing Account Manager Relationship Specialty Start Date End Date Unknown Unknow Provider Address PCP - General 09/27/19 08/27/20 Mabel Ambrose MD [address] [place] [address] PCP - General Internal Medicine 08/28/20 Radha Tillman APRN [address] [place] [address] Nurse Practitioner Surgery, Transplant 11/28/19 Aston Woods MD [address] [place] [address] Physician Nephrology 11/28/19 Katey Nevarez PsyD [address] [place] [address] Clinical Psychologist Psychology 02/18/21 Jenny Rodríguez, PhD [address] [place] [address] Clinical Psychologist Psychology 04/03/21 documented as of this encounter
--- OUTSIDE RECORDS SUMMARY | 2025-07-11 10:26 | XMS_ITS | Encounter Summary ---
Author Organization [facility] Address [address] [place] [address] Care Team Providers Care Delivery Truck Driver Heavy Name Role Phone Unknown Primary Care Provider +1-000-000 -0000 Radha Tillman APRN Unavailable Aston Woods MD Unavailable [phone] Mabel Ambrose MD Primary Care Pr ovider Katey Nevarez PsyD Unavailable +1-000-00 0-0000 Jenny Rodríguez PhD Unavailable [phone] Encounter Details Date Type Department Care Team (Late st Contact Info) Description 12/05/2019 Telephone [facility] 85 [facility] [address] [place] [phone] Regan Mata MA 85 [facility] [address] [place], [place] [phone] Social History Tobacco Use Types Packs/Day Years Used Date Smoking Tobacco: Never Assessed Sex and Gender Information Value Date Recorded Sex Assigned at Not on file Legal Sex Male 3:44 PM EST Gender Identity Not on file Sexual Orientation Not on file documented as of this encounter Miscellaneous Notes * Telephone Encounter - Regan Mota MA - 12/05/2019 12:10 PM EST Patient called requesting a call back. He did not say what the call was about. documented in this encounter Plan of Treatment Not on file documented as of this encounter Visit Diagnoses Not on filedocumented in this encounter Care Teams Delivery Truck Driver Heavy Relationship Specialty Start Date End Date Unknown Unknow Provider Address PCP - General 09/27/19 08/27/20 Mabel Ambrose MD 85 [place] [address] PCP - General Internal Medicine 08/28/20 Radha Tillman APRN [address] [place] [address] Nurse Practitioner Surgery, Transplant 11/28/19 Aston Woods MD [address] [place] [address] Physician Nephrology 11/28/19 Katey Nevarez PsyD [address] [place] [address] Clinical Psychologist Psychology 02/18/21 Jenny Rodríguez, PhD [address] [place] [address] Clinical Psychologist Psychology 04/03/21 documented as of this encounter
--- OUTSIDE RECORDS SUMMARY | 2025-07-11 10:26 | XMS_ITS | Encounter Summary ---
Author Organization [facility] [place] [address] Care Team Providers Care Newspaper Deliverer Name Role Phone Mabel Ambrose MD Primary Care Prov ider Encounter Details Date Type Department Care Team (Late st Contact Info) Description 02/15/2025 Referral Triage [facility] [address] [phone] Augustine Mccallum Social History Tobacco Use Types Packs/Day Years Used Date Smoking Tobacco: Former Cigars Passive Smoke Exposure: Never Smokeless Tobacco: Never Alcohol Use Standard Drinks/Week Comments Not Currently [...] ed Within the last 3 months, ho w many times did you visit the emergency [...] for your loved ones. For example, child nutrition manager or elderly care for an older adult? [...] on file documented as of this encounter Progress Notes * Augustine Mccallum - 02/15/2025 3:42 PM EDT Referral triage: Assigned to Edward (CHW) referral was not clear, pt looking for resources. Augustine Mccallum Community Health Worker (CHW) Internal Audit Manager/Regional documented in this encounter Plan of Treatment Upcoming Encounters Date Type Department Care Team (Late st Contact Info) Description 07/12/2025 1:40 PM EDT Office Visit [facility] [address] [place] [address] Erica Pedraza PA [address] [place] [address] [place] [address] documented as of this encounter Visit Diagnoses Not on filedocumented in this encounter Care Teams Newspaper Deliverer Relationship Specialty Start Date End Date Mabel Ambrose MD [address] [place] [address] PCP - General Internal Medicine 09/15/24 documented as of this encounter
--- OUTSIDE RECORDS SUMMARY | 2025-07-11 10:26 | XMS_ITS | Encounter Summary ---
Author Organization [facility] Address [address] [place] [phone] Care Team Providers Care Solutions Delivery Consultant Name Role Phone Unknown Primary Care Provider +1-000-000 -0000 Radha Tillman APRN Unavailable Aston Wodos MD Unavailable [phone] Mabel Ambrose MD Primary Care Pr ovider Katey Nevarez PsyD Unavailable +1-000-00 0-0000 Jenny Rodríguez PhD Unavailable Encounter Details Date Type Department Care Team (Late st Contact Info) Description 11/28/2019 Scanned Document [facility] & [facility] [address] [place] [phone] Provider, MD Keli [address] [place] [address] Social History Tobacco Use Types Packs/Day Years [...] on filedocumented in this encounter Care Teams Solutions Delivery Consultant Relationship Specialty Start Date End Date Unknown Unknow Provider Address PCP - General 09/27/19 08/27/20 Mabel Ambrose MD [address] [place] [address] PCP - General Internal Medicine 08/28/20 Radha Tillman APRN [address] [place] [address] Nurse Practitioner Surgery, Transplant 11/28/19 Aston Woods MD [address] [place] [address] Physician Nephrology 11/28/19 Katey Nevarez PsyD [address] [place] [address] Clinical Psychologist Psychology 02/18/21 Jenny Rodríguez, PhD [address] [place] [address] Clinical Psychologist Psychology 04/03/21 documented as of this encounter
--- OUTSIDE RECORDS SUMMARY | 2025-07-11 10:26 | XMS_ITS | Encounter Summary ---
Author Organization [facility] Address [address] [place] [address] Care Team Providers Care Cut Off Saw Operator Name Role Phone Radha Tillman APRN Unavailable Aston Woods MD Unavailable [phone] Mabel Ambrose MD Primary Care Pr ovider Katey Nevarez PsyD Unavailable +1-000-00 0-0000 Jenny Rodríguez PhD Unavailable Encounter Details Date Type Department Care Team (Late st Contact Info) Description 10/16/2020 Scanned Document [facility] [address] [phone] Provider, Keli, [address] [place] [address] Social History Tobacco Use Types Packs/Day Years [...] on filedocumented in this encounter Care Teams Cut Off Saw Operator Relationship Specialty Start Date End Date Mabel Ambrose MD [address] [place] [address] PCP - General Internal Medicine 08/28/20 Radha Tillman APRN [address] [address] Nurse Practitioner Surgery, Transplant 11/28/19 Aston Woods MD [address] [address] Physician Nephrology 11/28/19 Katey Nevarez PsyD [address] [place] [address] Clinical Psychologist Psychology 02/18/21 Jenny Rodríguez, PhD [address] [place] [address] Clinical Psychologist Psychology 04/03/21 documented as of this encounter
--- OUTSIDE RECORDS SUMMARY | 2025-07-11 10:26 | XMS_ITS | Encounter Summary ---
Author Organization [facility] Address [address] [place] [phone] Care Team Providers Care Casting Machine Operator Name Role Phone Unknown Primary Care Provider +1-000-000 -0000 Radha Tillman APRN Unavailable Aston Woods MD Unavailable [phone] Mabel Ambrose MD Primary Care Pr ovider Katey Nevarez PsyD Unavailable +1-000-00 0-0000 Jenny Rodríguez PhD Unavailable Encounter Details Date Type Department Care Team (Late st Contact Info) Description 12/04/2019 Scanned Document [facility] Trans[facility] & [facility] [address] [place] [phone] Provider, MD Keli [address] [place] [address] Social History Tobacco Use Types Packs/Day Years [...] on filedocumented in this encounter Care Teams Casting Machine Operator Relationship Specialty Start Date End Date Unknown Unknow Provider Address PCP - General 09/27/19 08/27/20 Mabel Ambrose MD [address] [place] [address] PCP - General Internal Medicine 08/28/20 Radha Tillman APRN [address] [place] [address] Nurse Practitioner Surgery, Transplant 11/28/19 Aston Woods MD [address] [place] [address] Physician Nephrology 11/28/19 Katey Nevarez PsyD [address] [place] [address] Clinical Psychologist Psychology 02/18/21 Jenny Rodríguez, PhD [address] [place] [address] Clinical Psychologist Psychology 04/03/21 documented as of this encounter
--- OUTSIDE RECORDS SUMMARY | 2025-07-11 10:27 | XMS_ITS | Encounter Summary ---
Author Organization [facility] Address [address] [place] [phone] Care Team Providers Care Editor Index Name Role Phone Radha Tillman APRN Unavailable [phone] Aston Woods MD Unavailable [phone] Mabel Ambrose MD Primary Care Pr ovider Katey Nevarez PsyD Unavailable +1-000-00 0-0000 Jenny Rodríguez PhD Unavailable [phone] Encounter Details Date Type Department Care Team (Late st Contact Info) Description 12/09/2022 Scanned Document [facility] [address] [phone] Provider, MD Keli [address] [place] [address] Social History Tobacco Use Types Packs/Day Years [...] on filedocumented in this encounter Care Teams Editor Index Relationship Specialty Start Date End Date Mabel Ambrose MD [address] [phone] PCP - General Internal Medicine 08/28/20 Radha Tillman APRN [address] [address] Nurse Practitioner Surgery, Transplant 11/28/19 Aston Woods MD [address] [address] Physician Nephrology 11/28/19 Katey Nevarez PsyD [address] [address] Clinical Psychologist Psychology 02/18/21 Jenny Rodríguez, PhD [address] [place] [address] Clinical Psychologist Psychology 04/03/21 documented as of this encounter
--- OUTSIDE RECORDS SUMMARY | 2025-07-11 10:27 | XMS_ITS | Encounter Summary ---
Author Organization [facility] Address [address] [employer], [place] [phone] Care Team Providers Care Lumber Marker Name Role Phone Radha Tillman APRN Unavailable Aston Woods MD Unavailable [phone] Mabel Ambrose MD Primary Care Pr ovider Katey Nevarez PsyD Unavailable +1-000-00 0-0000 Jenny Rodríguez PhD Unavailable [phone] Encounter Details Date Type Department Care Team (Late st Contact Info) Description 12/02/2022 Documentation [facility] [address] [phone] Roberta Hawkins LCSW [address] [phone] Social History Tobacco Use Types Packs/Day Years [...] on filedocumented in this encounter Care Teams Lumber Marker Relationship Specialty Start Date End Date Mabel Ambrose MD [address] [place] [phone] PCP - General Internal Medicine 08/28/20 Radha Tillman APRN [address] [place] [address] Nurse Practitioner Surgery, Transplant 11/28/19 Aston Woods MD [address] [place] [address] Physician Nephrology 11/28/19 Katey Nevarez PsyD [address] [place] [address] Clinical Psychologist Psychology 02/18/21 Jenny Rodríguez, PhD [address] [place] [address] Clinical Psychologist Psychology 04/03/21 documented as of this encounter
--- OUTSIDE RECORDS SUMMARY | 2025-07-11 10:27 | XMS_ITS ---
Author Name [facility] Organization Unknown History of Medication Use Medication Directions Dispensed Refills Start Date End Date Stat us LORazepam (ATIVAN) 0.5 MG tablet Take 0.5 mg by mouth daily as needed. 11/18/2019 active atorvastatin (LIPITOR) 80 MG tablet Take 80 mg by mouth daily. 10/05/2019 active carvedilol (COREG) 12.5 MG tablet Take 12.5 mg by mouth 2 (two) times a day with meals. 08/22/2019 active calcium acetate (PHOSLO) 667 MG capsule TAKE 1 CAPSULE BY MOUTH THREE TIMES DAILY WITH MEALS 08/21/2019 active aspirin enteric coated (ECOTRIN LOW STRENGTH) 81 MG EC tablet Take 81 mg by mouth daily. 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 2021-02-20 [facility] Encounters Encounter Type Encounter Reason Primary Diagnosis Location Date Ambulatory End stage renal disease [facility] 03/23/2022 Ambulatory Major depressive disorder, recurrent, in partial remission [facility] 01/20/2022 Ambulatory Alcohol abuse, uncomplicated [facility] 11/18/2021 Ambulatory Alcohol abuse, uncomplicated [facility] 10/16/2021 Ambulatory Alcohol abuse, uncomplicated [facility] 09/16/2021 Ambulatory Alcohol abuse, uncomplicated [facility] 08/14/2021 Care Team Organization Name Specialty Phone Email Start Date End Da te [facility]CO 06/20/2025 [facility] Erica Brown Primary Care 09/08/20222023 [facility] Primary Care 03/23/2022 06/19/2024 [facility] Primary Care 08/14/2021 01/20/2022
--- OUTSIDE RECORDS SUMMARY | 2025-07-11 10:27 | XMS_ITS | Encounter Summary ---
Author Organization [facility] Address [address] [place] [phone] Care Team Providers Care Refinish Technician Name Role Phone Unknown Primary Care Provider +1-000-000 -0000 Radha Tillman APRN Unavailable Aston Woods MD Unavailable [phone] Mabel Ambrose MD Primary Care Pr ovider Katey Nevarez PsyD Unavailable +1-000-00 0-0000 Jenny Rodríguez PhD Unavailable [phone] Encounter Details Date Type Department Care Team (Late st Contact Info) Description 10/05/2019 Scanned Document [facility] Transplant Program & [facility] [address] [place] [phone] Provider, MD Keli [address] [place] [address] Social History Tobacco Use Types Packs/Day Years [...] on filedocumented in this encounter Care Teams Refinish Technician Relationship Specialty Start Date End Date Unknown Unknow Provider Address PCP - General 09/27/19 08/27/20 Mabel Abmrose MD [address] [place] [address] PCP - General Internal Medicine 08/28/20 Radha Tillman APRN [address] [place] [address] Nurse Practitioner Surgery, Transplant 11/28/19 Aston Woods MD [address] [place] [address] Physician Nephrology 11/28/19 Katey Nevarez PsyD [address] [place] [address] Clinical Psychologist Psychology 02/18/21 Jenny Rodríguez, PhD [address] [place] [address] Clinical Psychologist Psychology 04/03/21 documented as of this encounter
--- OUTSIDE RECORDS SUMMARY | 2025-07-11 10:27 | XMS_ITS | Encounter Summary ---
Author Organization [facility] Address [address] [place], [place] [phone] Care Team Providers Care Butadiene Convertor Operator Name Role Phone Radha Tillman APRN Unavailable Aston Woods MD Unavailable [phone] Mabel Ambrose MD Primary Care Pr ovider Katey Nevarez PsyD Unavailable +1-000-00 0-0000 Jenny Rodríguez PhD Unavailable [phone] Encounter Details Date Type Department Care Team (Late st Contact Info) Description 12/02/2022 Telephone [facility] [address] [phone] Roberta Hawkins LCSW [address] [phone] Social History Tobacco Use Types Packs/Day Years [...] on filedocumented in this encounter Care Teams Butadiene Convertor Operator Relationship Specialty Start Date End Date Mabel Ambrose MD [address] [place] [phone] PCP - General Internal Medicine 08/28/20 Radha Tillman APRN [address] [place] [address] Nurse Practitioner Surgery, Transplant 11/28/19 Aston Woods MD [address] [place] [address] Physician Nephrology 11/28/19 Katey Nevarez PsyD [address] [place] [address] Clinical Psychologist Psychology 02/18/21 Jenny Rodríguez, PhD [address] [place] [address] Clinical Psychologist Psychology 04/03/21 documented as of this encounter
--- OUTSIDE RECORDS SUMMARY | 2025-07-11 10:27 | XMS_ITS | Encounter Summary ---
Author Organization [facility] Address [address] [place] [address] Care Team Providers Care Resident Care Technician Name Role Phone Radha Tillman APRN Unavailable Aston Woods MD Unavailable [phone] Mabel Ambrose MD Primary Care Pr ovider Katey Nevarez PsyD Unavailable +1-000-00 0-0000 Jenny Rodríguez PhD Unavailable [phone] Encounter Details Date Type Department Care Team (Late st Contact Info) Description 02/04/2022 Scanned Document [facility] [address] [phone] Daphney Gupta 85 [facility] [address] [place], [place] [id number] Social History Tobacco Use Types Packs/Day Years [...] have Coronavirus / COVID-19? Unable to assess 01/20/2022 1:11 PM EDT documented as of this encounter Plan of Treatment Not on file documented as of this encounter Visit Diagnoses Not on filedocumented in this encounter Care Teams Resident Care Technician Relationship Specialty Start Date End Date Mabel Ambrose MD [address] [place] [address] PCP - General Internal Medicine 08/28/20 Radha Tillman APRN [address] [place] [address] Nurse Practitioner Surgery, Transplant 11/28/19 Aston Woods MD [address] [place] [address] Physician Nephrology 11/28/19 Katey Nevarez PsyD [address] [place] [address] Clinical Psychologist Psychology 02/18/21 Jenny Rodríguez, PhD [address] [place] [phone] Clinical Psychologist Psychology 04/03/21 documented as of this encounter
--- OUTSIDE RECORDS SUMMARY | 2025-07-11 10:27 | XMS_ITS | Encounter Summary ---
Author Organization [facility] Address [address] [place] [id number] Care Team Providers Care Property Claim Rep Name Role Phone Unknown Primary Care Provider +1-000-000 -0000 Radha Tillman APRN Unavailable [phone] Aston Woods MD Unavailable [phone] Mabel Ambrose MD Primary Care Pr ovider Katey Nevarez PsyD Unavailable +1-000-00 0-0000 Jenny Rodríguez PhD Unavailable Encounter Details Date Type Department Care Team (Late st Contact Info) Description 09/27/2019 Scanned Document [facility] & [facility] [address] [place] [phone] Provider, MD Keli [address] [place] [phone] Social History Tobacco Use Types Packs/Day Years [...] on filedocumented in this encounter Care Teams Property Claim Rep Relationship Specialty Start Date End Date Unknown Unknow Provider Address PCP - General 09/27/19 08/27/20 Mabel Ambrose MD [address] [place] [address] PCP - General Internal Medicine 08/28/20 Radha Tillman APRN [address] [place] [address] Nurse Practitioner Surgery, Transplant 11/28/19 Aston Woods MD [address] [place] [address] Physician Nephrology 11/28/19 Katey Nevarez PsyD [address] [place] [address] Clinical Psychologist Psychology 02/18/21 Jenny Rodríguez, PhD [address] [place] [address] Clinical Psychologist Psychology 04/03/21 documented as of this encounter
--- OUTSIDE RECORDS SUMMARY | 2025-07-11 10:27 | XMS_ITS | Encounter Summary ---
Author Organization [facility] Address [address] [place] [id number] Care Team Providers Care Umbrella Supervisor Name Role Phone Unknown Primary Care Provider +1-000-000 -0000 Radha Tillman APRN Unavailable [phone] Aston Woods MD Unavailable [phone] Mabel Ambrose MD Primary Care Pr ovider Katey Nevarez PsyD Unavailable +1-000-00 0-0000 Jenny Rodríguez PhD Unavailable Encounter Details Date Type Department Care Team (Late st Contact Info) Description 10/05/2019 Scanned Document [facility] & [facility] [address] [place] [phone] Provider, MD Keli [address] [place] [address] Social History Tobacco Use Types Packs/Day Years [...] on filedocumented in this encounter Care Teams Umbrella Supervisor Relationship Specialty Start Date End Date Unknown Unknow Provider Address PCP - General 09/27/19 08/27/20 Mabel Ambrose MD [address] [place] [address] PCP - General Internal Medicine 08/28/20 Radha Tillman APRN [address] [place] [address] Nurse Practitioner Surgery, Transplant 11/28/19 Aston Woods MD [address] [place] [address] Physician Nephrology 11/28/19 Katey Nevarez PsyD [address] [place] [address] Clinical Psychologist Psychology 02/18/21 Jenny Rodríguez, PhD [address] [place] [phone] Clinical Psychologist Psychology 04/03/21 documented as of this encounter
--- OUTSIDE RECORDS SUMMARY | 2025-07-11 10:27 | XMS_ITS | Encounter Summary ---
Author Organization [facility] Address [address] [place] [address] Care Team Providers Care Fern Picker Name Role Phone Radha Tillman APRN Unavailable Aston Woods MD Unavailable [phone] Mabel Ambrose MD Primary Care Pr ovider Katey Nevarez PsyD Unavailable +1-000-00 0-0000 Jenny Rodríguez PhD Unavailable [phone] Encounter Details Date Type Department Care Team (Late st Contact Info) Description 02/03/2022 Telephone [facility] [address] [phone] Daphney Gupta 85 [facility] [address] [place], [place] [phone] Social History Tobacco Use Types Packs/Day Years [...] PM EDT documented as of this encounter Miscellaneous Notes * Telephone Encounter - Leo Richard RN - 02/03/2022 10:47 AM EDT I spoke with Roberta Hawkins LCSW and KOSTAS Palumbo our manage to make them aware of Mr. Osman's converstion with you. In my experience, once he is angry or upset he is difficult to engage in productive discussion. We will see if he re considers and chooses to keep his appointment with our Team. * Telephone Encounter - Daphney Gupta - 02/03/2022 10:30 AM EDT I called Abram to inquire about his new insurance and he mentioned that he will not keep his appointment today as he is very disappointed with this process. He is requesting a call from his Coordinator. Thea, can you follow up with the patient? documented in this encounter Plan of Treatment Not on file documented as of this encounter Visit Diagnoses Not on filedocumented in this encounter Care Teams Fern Picker Relationship Specialty Start Date End Date Mabel Ambrose MD [address] [place] [address] PCP - General Internal Medicine 08/28/20 Radha Tillman APRN [address] [place] [address] Nurse Practitioner Surgery, Transplant 11/28/19 Aston Woods MD [address] [place] [address] Physician Nephrology 11/28/19 Katey Nevarez PsyD [address] [place] [phone] Clinical Psychologist Psychology 02/18/21 Jenny Rodríguez, PhD [address] [place] [address] [place] [address] Clinical Psychologist Psychology 04/03/21 documented as of this encounter
--- OUTSIDE RECORDS SUMMARY | 2025-07-11 10:27 | XMS_ITS | Clinical Summary ---
Author Organization [facility] Address [address] [place] [phone] Phone Care Team Providers Care Infantry Unit Leader Name Role Phone Mabel Ambrose MD Primary Care Pr ovider Allergies Active Allergy Reactions Criticality Noted Date Comments Penicillins Rash,Other (see comments) Low 6 Unknown Medications sertraline (ZOLOFT) 25 MG tablet Take 1 tablet by mouth once daily 30 tablet 01/26/20 21 Active Additional Information Patient not taking.Reported on 07/10/2025 midodrine (PROAMATINE) 2.5 MG tablet TAKE 3 TABLETS BY MOUTH ONCE DAILY ON DIALYSIS DAYS NEEDED SBP >120 90 tablet 3 01/02/20 22 Active Additional Information Patient not taking.Reported on 07/10/2025 Calcium Acetate, Phos Binder, 667 MG capsule TAKE 2 CAPSULES BY MOUTH THREE TIMES DAILY WITH MEALS 510 capsule 11/15/19 23 Active B Opoonew-P-Ekuym Acid (Triphrocaps) 1 MG capsule Take 1 capsule by mouth once daily 90 capsule 3 05/10/20 24 Active sertraline (ZOLOFT) 50 MG tablet Take 1 tablet by mouth once daily 30 tablet 11 06/15/20 24 Active Additional Information Patient not taking.Reported on 07/10/2025 furosemide (LASIX) 40 MG tablet TAKE 1 TABLET BY MOUTH IN THE MORNING AND 1 TABLET IN THE EVENING 180 tablet 01/23/20 25 Active Additional Information Patient not taking.Reported on 07/10/2025 omeprazole (PriLOSEC) [address] capsule Take 1 capsule by mouth once daily 90 capsule 02/01/20 25 Active mycophenolate (MYFORTIC) 180 MG EC tablet Take 540 mg by mouth in the morning and 540 mg in the evening. 01/23/20 25 Active predniSONE 5 MG tablet Take 5 mg by mouth 1 (one) time each day 04/04/20 Active atorvastatin (LIPITOR) 80 MG tablet Take 1 tablet by mouth 1 (one) time each day 07/26/20 Active atovaquone (MEPRON) 750 MG/5ML suspension Take 1,500 mg by mouth 1 (one) time each day Active Vitamin D, Ergocalciferol, 50 MCG (2000 UT) capsule TAKE 1 CAPSULE BY MOUTH ONCE DAILY take with food 03/20/20 Active cinacalcet (SENSIPAR) 30 MG tablet Take 30 mg by mouth 1 (one) time each day 04/03/20 Active loperamide (IMODIUM) 2 MG capsule Take 2 mg by mouth if needed 03/01/20 Active Sodium Zirconium Cyclosilicate (Lokelma) 10 g pack Take 10 g by mouth 01/24/20 25 Active tamsulosin (FLOMAX) 0.4 MG 24 hr capsule Take 0.4 mg by mouth 1 (one) time each day 01/24/20 Active levothyroxine (SYNTHROID, LEVOTHROID) 200 MCG tablet Take 200 mcg by mouth 1 (one) time each day Active metoprolol succinate XL (TOPROL XL) 25 MG 24 hr tablet Take 25 mg by mouth 1 (one) time each day 10/26/20 Active nitroglycerin (NITROSTAT) 0.[address] 1 tablet under the tongue every 5 (five) minutes if needed 03/23/20 Active senna (SENOKOT) 8.6 MG tablet Take 1 tablet by mouth if needed for constipation Active Doxepin HCl 3 MG tablet Take 3 tabls daily as needed for insomnia Active ezetimibe (ZETIA) 10 MG tablet Take 10 mg by mouth 1 (one) time each day Active celecoxib (CeleBREX) 100 MG capsule Take 1 capsule (100 mg total) by mouth if needed for mild pain 30 capsule 1 12/22/19 24 025 Discontinu ed(Alterna te therapy) valGANciclovir (VALCYTE) 450 MG tablet Take 450 mg by mouth 1 (one) time each day 025 Discontinu ed(Alterna te therapy) Filgrastim-sndz 300 MCG/0.5ML solution prefilled syringe Inject 300 mcg as directed 1 (one) time each day for 3 days 1.5 mL 06/21/20 25 025 Active Problems Problem Noted Date Diagnosed Date Neutropenia 07/10/2025 Neutropenia 06/26/2025 Severe recurrent major depre ssion without psychotic features 06/12/2025 Kidney transplant status 06/12/2025 Hypertensive heart disease without heart failure 06/06/2025 Retinal disorder 06/01/2025 Obese class I 06/01/2025 Dyslipidemia 06/01/2025 Stage 5 chronic kidney disease 06/01/2025 Anemia in chronic kidney disease 06/01/2025 Hyperkalemia 06/01/2025 Hypertensive disorder 06/01/2025 Renal disorder due to type 2 diabetes mellitus 0 06/01/2025 Hyperparathyroidism 07/28/2022 Coronary atherosclerosis 07/28/2022 End stage renal disease 02/20/2021 Mixed hyperlipidemia 02/04/2021 Obstructive sleep apnea 10/16/2018 Overview (06/01/2025): [facility] Home Polysomnogram: Date 10/14/2018; AHI 56, Unclassified apneas 0; Obstructive apneas 42; Central apneas 0; Mixed apneas 0; hypopneas 38; average oxygen saturation 90% (lowest 60% with saturations <88% for 5% or more of study) - Obstructive Sleep Apnea - severe; mostly obstructive apneas and hypopneas; with sleep related hypoventilation by 2018 home polysomnogram. 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 Depressive disorder 01/27/2013 Type 1 diabetes mellitus 02/07/2011 Benign essential hypertension 05/21/2006 Pure hypercholesterolemia 02/08/2006 Hypothyroidism 02/08/2006 Esophageal reflux 02/08/2006 Erectile dysfunction 02/08/2006 Encounters Date Type Department Care Team Description 07/11/2025 Refill [facility] [address] [phone] Emiliana Stafford 07/10/2025 11:00 AM EDT Office Visit [facility] [address] [address] Gigi Newsome MD Kidney transplant status (Primary Dx); Type 1 diabetes mellitus, not otherwise specified (HCC); Neutropenia, not otherwise specified (HCC) 07/04/2025 Office Communication [facility] [address] [address] Gigi Newsome MD 06/27/2025 Office Communication [facility] [address] [address] Gigi Newsome MD Kidney transplant status (Primary Dx) 06/26/2025 11:15 AM EDT Office Visit [facility] [address] [address] Gigi Newsome MD Kidney transplant status (Primary Dx) 06/26/2025 Office Communication [facility] [address] [address] Gigi Newsome MD 06/22/2025 Orders Only [facility] [address] [address] Emiliana Stafford Kidney transplant status (Primary Dx) 06/20/2025 Office Communication [facility] [address] [address] Gigi Newsome MD Kidney transplant status (Primary Dx) 06/19/2025 Orders Only [facility] [address] [address] Gigi Newsome MD 06/12/2025 9:00 AM EDT Office Visit [facility] [address] [address] Gigi Newsome MD Kidney transplant status (Primary Dx) 05/16/2025 Documentation Only [facility] [address] [place] [address] [place] [address] Tana Abdul 04/13/2025 Refill [facility] [address] [place] [phone] Rona Gee MA from Last 3 Months Immunizations Immunization Administration Dates Next Due H1N1 Inj Preservative Free 11/06/2009 Hep B, Unspecified 03/13/2022, 2,01/02/2022,2020,02/07/2020,10/06/2019,09/08/2019,1 Influenza (IM) Preservative Free 017,09/03/2015,09/28/2012,2008,08/06/2006,10/21/2005 Influenza Split High Dose Preservative Free IM 07/11/2020 Influenza, MDCK, PF, Quadrivalent 08/29/2018 Influenza, Unspecified 07/23/2024,09/12/2022,01/2016 Moderna SARS-COV-2 10/03/2022 Pneumococcal Conjugate 13-Valent 08/29/2018 Shingrix 04/18/2024,03/27/2024,10/31/2023 Tdap 07/23/2009 Family History Medical History Relation Comments Cancer Father Diabetes Father Heart disease Father Hypertension Father Cancer Mother Diabetes Mother Hypertension Mother Relation Status Comments Father Unknown Mother Unknown Social History Tobacco Use Types Packs/Day Years [...] 6.4 oz) 07/10/2025 11:13 AM EDT Height 177.8 cm (5' 10 ) 07/26/2019 12:00 PM EDT Body Mass Index 30.19 07/26/2019 12:00 PM EDT Plan of Treatment Upcoming Encounters Date Type Department Care Team (Late st Contact Info) Description 08/01/2025 2:00 PM EDT Office Visit [facility] [address] [phone] Gigi Newsome MD [address] [address] Health Maintenance Due Date Last Done Comments Pneumococcal Vaccine: 50+ Years (2 of 2 - PPSV23, PCV20, or PCV21) 10/24/2018 08/29/2018 Diabetes: Ophthalmology Exam 12/01/2020 Diabetes: Pedal Pulse Checked 12/01/2020 Diabetes: Sensory Foot Exam 12/01/2020 Diabetes: Visual Foot Exam 12/01/2020 Colonoscopy (Post-Transplant Patient) 01/24/2025 Diabetes: Hemoglobin A1C 02/06/2025 025, 08/05/2022, 11/05/2021, Additional history exists Influenza Vaccine (#1) 2025 4, 09/12/2022, 07/11/2020, Additional history exists Pneumococcal Vaccine: Peds (0 to 5 Years) and At-Risk Patients (6 to 49 Years) Discontinued 08/29/2018 Hepatitis B Vaccine Aged Out 03/13/2022, 02/09/2022, 01/02/2022, Additional history exists No longer eligible based on patient's age to complete this topic Procedures Procedure Name Priority Date/Time Associated Diagnosis Comments IMMATURE CELLS Routine 07/09/2025 10:02 AM EDT RENAL FUNCTION PANEL Routine 07/09/2025 10:02 AM EDT Kidney transplant status CBC AND DIFFERENTIAL Routine 07/09/2025 10:02 AM EDT Kidney transplant status CMV DNA, QUANTITATIVE, PCR Routine 07/09/2025 10:02 AM EDT Kidney transplant status BK VIRUS, DNA, QUANTITATIVE Routine 07/09/2025 10:02 AM EDT Kidney transplant status CMV DNA, QUANTITATIVE, PCR Routine 07/03/2025 10:27 AM EDT Kidney transplant status CBC AND DIFFERENTIAL Routine 07/03/2025 10:27 AM EDT Kidney transplant status RENAL FUNCTION PANEL Routine 07/03/2025 10:27 AM EDT Kidney transplant status IMMATURE CELLS Routine 06/26/2025 12:45 PM EDT CMV DNA, QUANTITATIVE, PCR Routine 06/26/2025 12:45 PM EDT Kidney transplant status CBC AND DIFFERENTIAL Routine 06/26/2025 12:45 PM EDT Kidney transplant status PROTEIN,TOTAL,URINE Routine 06/19/2025 3 :00 PM EDT URINE ALBUMIN / CREATININE RATIO Routine 06/19/2025 3:00 PM EDT RENAL FUNCTION PANEL Routine 06/19/2025 3:00 PM EDT URINALYSIS WITH MICROSCOPIC Routine 06/19/2025 3:00 PM EDT CBC AND DIFFERENTIAL Routine 06/19/2025 3:00 PM EDT MICROSCOPIC EXAMINATION - DO NOT USE Routine 06/19/2025 3:00 PM EDT EXT RESULT ENTRY Routine 05/31/2025 HEMOGLOBIN A1C Routine 11/08/2024 3:00 AM EST from Last 3 Months or Most Recently Relevant to Health Maintenance Results * (ABNORMAL) Immature Cells (07/09/2025 10:02 AM EDT) Only the most recent of2 resultswithin the time period is included. Pathologist [facility] Myelocytes Relative 2(H) 0 - 0 % [facility] 07/09/2025 10:0 2 AM EDT 07/09/2025 Gigi Newsome MD LAB BLOOD ORDERABLES Final Re sult Performing Organization Address [facility] Co de Phone Number [facility] [address] [place] [phone] * BK virus, quantitative PCR (07/09/2025 10:02 AM EDT) [facility] BK VIRUS DNA, PCR Negative Negative IU/mL [facility] Comment: No BK DNA detected. The linear range of the assay is 22 - 100,000,000 IU/mL. Blood Venous blood / Unknown 07/09/2025 10:02 AM EDT 07/09/2025 Gigi Newsome MD LAB BLOOD ORDERABLES Final Re sult Performing Organization Address [facility] Co de Phone Number [facility] [address] [place] [phone] * CMV PCR Quantitative (07/09/2025 10:02 AM EDT) Only the most recent of3 resultswithin the time period is included. Pathologist [facility] CMV Quant DNA PCR Negative Negative IU/mL [facility] Comment: No CMV DNA detected. The quantitative range of this assay is 200 to 1 million IU/mL. Log 10 CMV QN DNA Plasma CANCELED log10 IU/mL [facility] [phone] Comment: Unable to calculate result since non-numeric result obtained for component test. Result canceled by the ancillary. Blood Venous blood / Unknown 07/09/2025 10:02 AM EDT 07/09/2025 us Gigi Newsome MD LAB BLOOD ORDERABLES Edited R esult - Final [facility] [address] [place] [address] * (ABNORMAL) CBC and differential (07/09/2025 10:02 AM EDT) Only the most recent of4 resultswithin the time period is included. WBC 1.6(LL) 3.4 - 10.8 x10E3/uL [facility] RBC 4.01(L) 4.14 - 5.80 x10E6/uL [facility] Hemoglobin 11.5(L) 13.0 - 17.7 g/dL [facility] Hematocrit 36.5(L) 37.5 - 51.0 % [facility] MCV 91 79 - 97 fL [facility] MCH 28.7 26.6 - 33.0 pg [facility] MCHC 31.5 31.5 - 35.7 g/dL [facility] RDW 14.1 11.6 - 15.4 % [facility] Platelets 195 150 - 450 x10E3/uL [facility] Neutrophils Relative 68 Not Estab. % [facility] Lymphocytes Relative 7 Not Estab. % [facility] Monocytes 11 Not Estab. % [facility] Eosinophils Relative 10 Not Estab. % [facility] Basophils Relative 2 Not Estab. % [facility] Immature Cells Note [facility] [place] Neutrophils Absolute 1.1(L) 1.4 - 7.0 x10E3/uL [facility] Lymphocytes Absolute 0.1(L) 0.7 - 3.1 x10E3/uL [facility] Monocytes Absolute 0.2 0.1 - 0.9 x10E3/uL [facility] Eosinophils Absolute 0.2 0.0 - 0.4 x10E3/uL [facility] Basophils Absolute 0.0 0.0 - 0.2 x10E3/uL [facility] Comment: Note: [facility] Comment: Observations confirmed by smear review. (Performed by Pathologist Designated Tech) CBC met reflex criteria for review of peripheral smear by medical laboratory professional. Manual differential was performed. Blood Venous blood / Unknown 07/09/2025 10:02 AM EDT 07/09/2025 Gigi Newsome MD LAB BLOOD ORDERABLES Final Re sult [facility] [address] [place] [address] * (ABNORMAL) Renal function panel (07/09/2025 10:02 AM EDT) Only the most recent of3 resultswithin the time period is included. Glucose 284(H) 70 - 99 mg/dL [facility] [place] BUN 29(H) 8 - 27 mg/dL [facility] Creatinine 1.71(H) 0.76 - 1.27 mg/dL [facility] [place] eGFR CKD-EPI CR 2020 43(L) >59 mL/min/1.7 3 [facility] BUN/Creatinine Ratio 17 10 - 24 [facility] Sodium 138 134 - 144 mmol/L [facility] Potassium 4.7 3.5 - 5.2 mmol/L [facility] Chloride 104 96 - 106 mmol/L [facility] Bicarbonate (CO2) 18(L) 20 - 29 mmol/L [facility] Calcium 9.1 8.6 - 10.2 mg/dL [facility] Phosphorus 3.3 2.8 - 4.1 mg/dL [facility] Albumin 4.0 3.9 - 4.9 g/dL [facility] Blood Venous blood / Unknown 07/09/2025 10:02 AM EDT 07/09/2025 Gigi Newsome MD LAB BLOOD ORDERABLES Final Re sult Performing Organization Address [facility]/ZIP Co de Phone Number [facility] [place] [address] [place] [address] * Protein, Total, Urine (06/19/2025 3:00 PM EDT) Protein, Ur 36.0 Not Estab. mg/dL [facility] 06/19/2025 3:00 PM EDT 06/19/2025 Gigi Newsome MD LAB URINE ORDERABLES Final Re sult Performing Organization Address [facility]/ZIP Co de Phone Number [facility] [address] [place] [address] * Microscopic Examination (06/19/2025 3:00 PM EDT) WBC, Urine None seen 0 - 5 /hpf [facility] RBC, Urine None seen 0 - 2 /hpf [facility] Squamous Epithelial, Urine None seen 0 - 10 /hpf [facility] Casts None seen None seen /lpf [facility] Bacteria, Urine None seen None seen/Few [facility] 06/19/2025 3:00 PM EDT 06/19/2025 Gigi Newsome MD LAB MICROBIOLOGY - GENERAL OR DERABLES Final Result Performing Organization Address [facility] Co de Phone Number [facility] [address] [place] [address] * (ABNORMAL) Urine Albumin / Creatinine Ratio (06/19/2025 3:00 PM EDT) Creatinine, Ur 93.5 Not Estab. mg/dL [facility] Albumin, Urine 97.8 Not Estab. ug/mL [facility] Albumin/Creatin ine Ratio 105(H) 0 - 29 mg/g creat [facility] Comment: Normal: 0 - 29 Moderately increased: 30 - 300 Severely increased: >300 06/19/2025 3:00 PM EDT 06/19/2025 Gigi Newsome MD LAB URINE ORDERABLES Final Re sult Performing Organization Address [facility] Co de Phone Number [facility] [address] [place] [address] * (ABNORMAL) Urinalysis with microscopic (06/19/2025 3:00 PM EDT) Specific [place], Urine 1.020 1.005 - 1.030 [facility] [phone] pH Urine 6.0 5.0 - 7.5 [facility] [phone] Color, Urine Yellow Yellow [facility] [phone] Appearance Urine Clear Clear [facility] [place] [phone] WBC Esterase Urine Negative Negative [facility] [phone] Protein, Ur 1+(A) Negative/Tra ce [facility] [phone] Glucose, Ur Trace(A) Negative [facility] [phone] Ketones, Urine Negative Negative [facility] [place] [phone] Blood Urine Negative Negative [facility] [phone] Bilirubin Urine Negative Negative [facility] Urobilinogen Urine 0.2 0.2 - 1.0 mg/dL [facility] [phone] Nitrite, Urine Negative Negative [facility] Microscopic Examination See below: [facility] [phone] Comment:Microscopic was salma cated and was performed. 06/19/2025 3:00 PM EDT 06/19/2025 us Gigi Newsome MD LAB URINE ORDERABLES Final Re sult [facility] [address] [place] [address] * (ABNORMAL) EXT RESULT ENTRY (05/31/2025) WBC 2.6(A) 3.3 - 10.0 10*3/ML Red Blood Cell Count 3.97 Hemoglobin 11.0(A) 13.5 - 17.5 Hematocrit 36.0(A) 41.0 - 53.0 Platelets 217 150 - 399 10*3/UL MCV 90.7 82.0 - 108.0 Neutrophils Absolute 1.90 1.30 - 8.30 10*3/UL Lymphocytes Absolute 0.20(A) 1.40 - 2.90 10*3/UL Monocytes Absolute 0.20 0.20 - 0.80 10*3/UL Eosinophils Absolute 0.20 0.20 - 0.70 10*3/UL Sodium 140 137 - 147 Potassium 5.0 3.4 - 5.5 Chloride 106.0 99.0 - 108.0 Anion Gap 9 <=30 MMOL/L Glucose 271(A) 60 - 200 BUN 30(A) 4 - 21 mg/dL Creatinine 1.54(A) 0.60 - 1.30 mg/dL Phosphorus, Serum 3.5 eGFR Non-Afr [place] 48 05/31/2025 Erika Provider LAB BLOOD ORDERABLES Yue l Result * (ABNORMAL) Hemoglobin A1c (11/08/2024 3:00 AM EST) Hemoglobin A1C 7.1(H) <5.7 % [facility] Comment: Methodology: Enzymatic HbA1c (NGSP %) Suggested Diagnosis >6.4% Diabetic 5.7-6.4% Pre-Diabetic <5.7% Non-Diabetic Diabetic Glucose Control Evaluation: Therapeutic action suggested at >8.0% ADA recommends a glycemic goal of <7.0% 11/08/2024 3:00 AM EST 11/09/2024 5:43 PM EST Timothy Oshea MD LAB BLOOD ORDERABLES Final Resu lt APS [facility] [address] [place] [address] from Last 3 Months or Most Recently Relevant to Health Maintenance Insurance Medicare Medicare [place] Medicare Member Subscriber Plan / Payer (Ef fective 2019-) Name:Abram Osman Member ID:[id number] Relation to Subscriber:Self Name:Abram Osman Maria Luz Subscriber ID:[id number] Payer ID:Not on file Group ID:Not on file Type:Not on file Address: [place] [id number] [place] Care Teams Infantry Unit Leader Relationship Specialty Start Date End Date Mabel Ambrose MD [address] [place] [id number] PCP - General 11/11/20
--- OUTSIDE RECORDS SUMMARY | 2025-07-11 10:27 | XMS_ITS | Encounter Summary ---
Author Organization [facility] Address [address] [place] [address] Care Team Providers Care Invas Tech Name Role Phone Radha Tillman APRN Unavailable Aston Woods MD Unavailable [phone] Mabel Ambrose MD Primary Care Pr ovider Katey Nevarez PsyD Unavailable [phone] Jenny Rodríguez PhD Unavailable [phone] Encounter Details Date Type Department Care Team (Late st Contact Info) Description 07/09/2022 Telephone [facility] [address] [facility] [address] [place] [phone] Leslie Carter MA [address] [facility] [address] [place], [place] [id number] Social History Tobacco Use Types Packs/Day Years [...] Telephone Encounter - Leslie Carter MA - 07/09/2022 2:40 PM EDT Spoke to patient and he said that he will call his crane follower to make appointments for cardiac testing. documented in this encounter Plan of Treatment Not on file documented as of this encounter Visit Diagnoses Not on filedocumented in this encounter Care Teams Invas Tech Relationship Specialty Start Date End Date Mabel Ambrose MD [address] [place] [phone] PCP - General Internal Medicine 08/28/20 Radha Tillman APRN [address] [place] [id number] Nurse Practitioner Surgery, Transplant 11/28/19 Aston Woods MD [address] [place] [phone] Physician Nephrology 11/28/19 Katey Nevarez PsyD [address] [place] [phone] Clinical Psychologist Psychology 02/18/21 Jenny Rodríguez, PhD [address] [place] [phone] Clinical Psychologist Psychology 04/03/21 documented as of this encounter
--- OUTSIDE RECORDS SUMMARY | 2025-07-11 10:27 | XMS_ITS | Encounter Summary ---
Author Organization [facility] Address [address] [place] [phone] Care Team Providers Care Supervisor Residential Name Role Phone Unknown Primary Care Provider [phone] Radha Tillman APRN Unavailable Aston Woods MD Unavailable [phone] Mabel Ambrose MD Primary Care Pr ovider Katey Nevarez PsyD Unavailable [phone] Jenny Rodríguez PhD Unavailable Encounter Details Date Type Department Care Team (Late st Contact Info) Description 11/27/2019 Documentation [facility] [address] [facility] [address] [place] [address] Deandre [place] MA [address] [facility] [address] [place], [place] [phone] Social History Tobacco Use Types Packs/Day Years [...] filedocumented in this encounter Care Teams Supervisor Residential Relationship Specialty Start Date End Date Unknown Unknow Provider Address PCP - General 09/27/19 08/27/20 Mabel Ambrose MD [address] [place] [phone] PCP - General Internal Medicine 08/28/20 Radha Tillman APRN [address] [place] [phone] Nurse Practitioner Surgery, Transplant 11/28/19 Aston Woods MD [address] [place] [phone] Physician Nephrology 11/28/19 Katey Nevarez PsyD [address] [place] [phone] Clinical Psychologist Psychology 02/18/21 Jenny Rodríguez, PhD [address] [place] [phone] Clinical Psychologist Psychology 04/03/21 documented as of this encounter
--- OUTSIDE RECORDS SUMMARY | 2025-07-11 10:27 | XMS_ITS | Encounter Summary ---
Author Organization Formerly [facility] Address [address] [id number] Care Team Providers Care Environmental Educator Name Role Phone Unknown Primary Care Provider +1-000-000 -0000 Unknown Primary Care Provider +1-000-000 -0000 Radha Tillman APRN Unavailable [phone] Aston Woods MD Unavailable [phone] Mabel Ambrose MD Primary Care Pr ovider Katey Nevarez PsyD Unavailable +1-000-00 0-0000 Jenny Rodríguez PhD Unavailable [phone] Encounter Details Date Type Department Care Team (Late st Contact Info) Description 09/26/2019 Telephone [facility] [address] [facility] [address] [place] [phone] Leslie Carter MA 85 [facility] [address] [place] [phone] Social History Tobacco Use Types Packs/Day Years Used Date Smoking Tobacco: Never Assessed Sex and Gender Information Value Date Recorded Sex Assigned at Not on file Legal Sex Male 3:44 PM EST Gender Identity Not on file Sexual Orientation Not on file documented as of this encounter Miscellaneous Notes * Telephone Encounter - Leslie Carter MA - 10/03/2019 3:22 PM EST Left message with patients to call and schedule pre kidney evaluation * Telephone Encounter - Leslie Carter MA - 09/27/2019 2:30 PM EST Patient returned phone call and called patient back and left voicemail. * Telephone Encounter - Leslie Carter MA - 09/26/2019 3:53 PM EST 3rd attempt to reach patient to start pre kidney appointment. Left voicemail. No contact letter mailed to patient. documented in this encounter Plan of Treatment Not on file documented as of this encounter Visit Diagnoses Not on filedocumented in this encounter Care Teams Environmental Educator Relationship Specialty Start Date End Date Unknown Unknow Provider Address PCP - General 09/26/19 09/26/19 Unknown Unknow Provider Address PCP - General 09/27/19 08/27/20 Mabel Ambrose MD [address] [place] [address] PCP - General Internal Medicine 08/28/20 Radha Tillman APRN [address] [place] [address] Nurse Practitioner Surgery, Transplant 11/28/19 Aston Woods MD [address] [address] Physician Nephrology 11/28/19 Katey Nevarez PsyD [address] [place] [address] Clinical Psychologist Psychology 02/18/21 Jenny Rodríguez, PhD [address] [place] [address] Clinical Psychologist Psychology 04/03/21 documented as of this encounter
--- OUTSIDE RECORDS SUMMARY | 2025-07-11 10:27 | XMS_ITS | Encounter Summary ---
Author Organization [facility] Address [address] [place] [address] Care Team Providers Care Automatic Presser Name Role Phone Radha Tillman APRN Unavailable [phone] Aston Woods MD Unavailable [phone] Mabel Ambrose MD Primary Care Pr ovider Katey Nevarez PsyD Unavailable +1-000-00 0-0000 Jenny Rodríguez PhD Unavailable [phone] Encounter Details Date Type Department Care Team (Late st Contact Info) Description 05/29/2021 Telephone [facility] 85 [facility] [address] [place] [phone] Leslie Carter MA 85 [facility] [address] [place] [phone] Social History Tobacco Use Types Packs/Day Years Used Date Smoking Tobacco: Never Assessed Sex and Gender Information Value Date Recorded Sex Assigned at Not on file Legal Sex Male 3:44 PM EST Gender Identity Not on file Sexual Orientation Not on file documented as of this encounter Miscellaneous Notes * Telephone Encounter - Leslie Carter MA - 05/29/2021 4:08 PM EDT Left patient voicemail to call me back and schedule follow up appointment with psych fellow. Per fellow, any that is open is ok. documented in this encounter Plan of Treatment Not on file documented as of this encounter Visit Diagnoses Not on filedocumented in this encounter Care Teams Automatic Presser Relationship Specialty Start Date End Date Mabel Ambrose MD [address] [place] [id number] PCP - General Internal Medicine 08/28/20 Radha Tillman APRN [address] [place] [phone] Nurse Practitioner Surgery, Transplant 11/28/19 Aston Woods MD [address] [place] [phone] Physician Nephrology 11/28/19 Katey Nevarez PsyD [address] [place] [phone] Clinical Psychologist Psychology 02/18/21 Jenny Rodríguez, PhD [address] [place] [phone] Clinical Psychologist Psychology 04/03/21 documented as of this encounter
== END 2025-07-11 10:15 | disposition home or self-care (01) ==
LOC: HO.HSMS 08:53
PROVIDERS: PCP Internal Medicine; Visit Provider Nurse Practitioner Family
DX: G44.009 Cluster headache syndrome, unspecified, not intractable (principal); R51.9 Headache, unspecified; H57.12 Ocular pain, left eye; G43.711 Chronic migraine without aura, intractable, with status migrainosus
CPT/HCPCS: 99214

== ENCOUNTER → 2025-07-11 08:53 | Outpatient (BNVA) | payer MEDICARE, SELFPAY | PROVIDERS: PCP Internal Medicine; Visit Provider Nurse Practitioner Family | DX: G43.711 Chronic migraine without aura, intractable, with status migrainosus (principal); H57.12 Ocular pain, left eye | CPT/HCPCS: 99212 ==